=== PATIENT | male | born 1965 | race American Indian/Alaskan Native ===

== ENCOUNTER 2016-10-26 21:31 | Emergency (ER) | payer MEDICAID ==
[2016-10-26] MEDS ORDERED: TYLENOL PO ONE (21:56)
--- NOTE | 2016-10-27 02:54 | Emergency Department Report ---
ED ENT HPI - General Chief complaint: Earache Stated complaint: RIGHT EAR AND FOOT PAIN,HEADACHE Time Seen by Provider: 10/27/16 02:49 Source: patient Mode of arrival: Ambulatory Limitations: No Limitations - History of Present Illness Initial comments: 51 y/o male complain of right earache x 3 days with a headache .pt denies headache at present but complain of fullness to right ear. complaint: ear pain Onset/Timin -: days(s) Location: R ear Severity scale (0 -10): 1 Quality: other (fullness to right ear) Consistency: intermittent Improves with: none, cold therapy - Related Data Home Medications Medication Instructions Recorded Confirmed Last Taken Benztropine [Cogentin] 0.5 mg PO DAILY 07/28/16 07/28/16 07/27/16 Prednisone [predniSONE (Halina) ER 2 mg PO QDAY 07/28/16 07/28/16 07/27/16 TAB] Quetiapine Fumarate [Seroquel] 100 mg PO HS 07/28/16 07/28/16 07/27/16 amLODIPine [Norvasc] 5 mg PO DAILY 07/28/16 07/28/16 07/26/16 Previous Rx's Medication Instructions Recorded Last Taken Type Acetaminophen/Codeine [Tylenol #3] 1 tab PO Q6H PRN #10 tab 07/28/16 Unknown Rx traMADol [Ultram 50 MG tab] 50 mg PO Q6HR PRN #30 tablet 09/09/16 Unknown Rx Azithromycin [Zithromax] 250 mg PO DAILY #6 tablet 10/27/16 Unknown Rx Allergies Allergy/AdvReac Type Severity Reaction Status Date / Time aspirin Allergy Itching Verified 07/28/16 10:20 Penicillins Allergy Hives Verified 07/28/16 10:20 ED Dental HPI - General Chief complaint: Earache Stated complaint: RIGHT EAR AND FOOT PAIN,HEADACHE Time Seen by Provider: 10/27/16 02:49 Source: patient Mode of arrival: Ambulatory Limitations: No Limitations - Related Data Home Medications Medication Instructions Recorded Confirmed Last Taken Benztropine [Cogentin] 0.5 mg PO DAILY 07/28/16 07/28/16 07/27/16 Prednisone [predniSONE (Halina) ER 2 mg PO QDAY 07/28/16 07/28/16 07/27/16 TAB] Quetiapine Fumarate [Seroquel] 100 mg PO HS 07/28/16 07/28/16 07/27/16 amLODIPine [Norvasc] 5 mg PO DAILY 07/28/16 07/28/16 07/26/16 Previous Rx's Medication Instructions Recorded Last Taken Type Acetaminophen/Codeine [Tylenol #3] 1 tab PO Q6H PRN #10 tab 07/28/16 Unknown Rx traMADol [Ultram 50 MG tab] 50 mg PO Q6HR PRN #30 tablet 09/09/16 Unknown Rx Azithromycin [Zithromax] 250 mg PO DAILY #6 tablet 10/27/16 Unknown Rx Allergies Allergy/AdvReac Type Severity Reaction Status Date / Time aspirin Allergy Itching Verified 07/28/16 10:20 Penicillins Allergy Hives Verified 07/28/16 10:20 ED Review of Systems ROS: Stated complaint: RIGHT EAR AND FOOT PAIN,HEADACHE Other details as noted in HPI Constitutional: denies: chills, fever Eyes: denies: eye pain, eye discharge, vision change ENT: ear pain. denies: throat pain Respiratory: denies: cough, shortness of breath, wheezing Cardiovascular: denies: chest pain, palpitations Endocrine: no symptoms reported Gastrointestinal: denies: abdominal pain, nausea, diarrhea Genitourinary: denies: urgency, dysuria Musculoskeletal: denies: back pain, joint swelling, arthralgia Skin: denies: rash, lesions Neurological: headache. denies: weakness, paresthesias Psychiatric: denies: anxiety, depression Hematological/Lymphatic: denies: easy bleeding, easy bruising ED Past Medical Hx - Past Medical History Hx Hypertension: Yes Hx GERD: Yes (PUD) Hx Arthritis: Yes Hx Headaches / Migraines: Yes Hx Psychiatric Treatment: Yes (Bipolar) Hx Asthma: Yes Additional medical history: Right foot/toe injury, Right knne and right hand pain - Surgical History Additional Surgical History: Right knee surgery, Right hand surgery - Social History Smoking Status: Current Every Day Smoker Substance Use Type: None - Medications Home Medications: Home Medications Medication Instructions Recorded Confirmed Last Taken Type Acetaminophen/Codeine [Tylenol #3] 1 tab PO Q6H PRN #10 tab 07/28/16 Unknown Rx Benztropine [Cogentin] 0.5 mg PO DAILY 07/28/16 07/28/16 07/27/16 History Prednisone [predniSONE (Halina) ER 2 mg PO QDAY 07/28/16 07/28/16 07/27/16 History TAB] Quetiapine Fumarate [Seroquel] 100 mg PO HS 07/28/16 07/28/16 07/27/16 History amLODIPine [Norvasc] 5 mg PO DAILY 07/28/16 07/28/16 07/26/16 History traMADol [Ultram 50 MG tab] 50 mg PO Q6HR PRN #30 tablet 09/09/16 Unknown Rx Azithromycin [Zithromax] 250 mg PO DAILY #6 tablet 10/27/16 Unknown Rx ED Physical Exam - General Limitations: No Limitations General appearance: alert, in no apparent distress - Head Head exam: Present: atraumatic, normocephalic - Eye Eye exam: Present: normal appearance, PERRL Pupils: Present: normal accommodation - ENT ENT exam: Present: normal exam, mucous membranes moist - Expanded ENT Exam Expanded TM/Canal exam: Effusion: Right TM, Left TM, Mastoid Tenderness: Right TM, Left TM (frontal ) Mouth exam: Present: normal external inspection. Absent: drooling, trismus, muffled voice, tongue normal Throat exam: Positive: other (post nasal drip ) - Neck Neck exam: Present: normal inspection - Respiratory Respiratory exam: Present: normal lung sounds bilaterally. Absent: respiratory distress, wheezes, rales - Cardiovascular Cardiovascular Exam: Present: regular rate, normal rhythm. Absent: systolic murmur, diastolic murmur, rubs, gallop - GI/Abdominal GI/Abdominal exam: Present: soft, normal bowel sounds - Rectal Rectal exam: Present: deferred - Extremities Exam Extremities exam: Present: normal inspection - Back Exam Back exam: Present: normal inspection - Neurological Exam Neurological exam: Present: alert, oriented X3, CN II-XII intact, normal gait - Psychiatric Psychiatric exam: Present: normal affect, normal mood - Skin Skin exam: Present: warm, dry, intact, normal color. Absent: rash ED Course Vital Signs 10/26/16 21:50 Temperature 98.3 F Pulse Rate 63 Respiratory 18 Rate Blood Pressure 156/107 O2 Sat by Pulse 100 Oximetry ED Medical Decision Making - Medical Decision Making sinusitis Critical care attestation.: If time is entered above; I have spent that time in minutes in the direct care of this critically ill patient, excluding procedure time. ED Disposition Clinical Impression: Sinusitis Qualifiers: Sinusitis location: frontal Chronicity: acute Recurrence: not specified as recurrent Qualified Code(s): J01.10 - Acute frontal sinusitis, unspecified Disposition: DISCHARGED TO HOME OR SELFCARE Is pt being admited?: No Does the pt Need Aspirin: No Condition: Stable Instructions: Sinusitis (ED) Prescriptions: Azithromycin [Zithromax] 250 mg PO DAILY #6 tablet Referrals: PRIMARY CARE, [Primary Care Provider] - 3-5 Days [facility] [Outside] - 3-5 Days Time of Disposition: 02:58
[2016-10-27 03:06] VITALS: BP 136/95
== END 2016-10-27 03:05 | disposition home or self-care (01) ==
LOC: ED 21:31
DX: J01.10 Acute frontal sinusitis, unspecified (principal); I10 Essential (primary) hypertension; K21.9 Gastro-esophageal reflux disease without esophagitis; G43.909 Migraine, unspecified, not intractable, without status migrainosus; F31.9 Bipolar disorder, unspecified; F17.200 Nicotine dependence, unspecified, uncomplicated
CPT/HCPCS: 99282

== ENCOUNTER 2016-12-17 08:20 | Emergency (ER) | payer MEDICAID ==
--- NOTE | 2016-12-17 12:19 | Emergency Department Report ---
ED General Adult HPI - General Chief complaint: Extremity Injury, Lower Stated complaint: EYES/RT TOE NAIL PAIN Time Seen by Provider: 12/17/16 11:24 Source: patient Mode of arrival: Ambulatory Limitations: No Limitations - History of Present Illness Initial comments: PT states last night, he was cutting his toe nails and his R great toe nail broke and peeled up. PT states he tried to cut the lifted piece of nail but he was experiencing pain and noted drainage from the nail bed. PT states his last eye exam was 1 year ago in [place]. PT states he was told to buy some over the counter reading glasses. PT states that some times the reading glasses help but he has noticed an increase in blurry vision. PT denies hx of dm and states his TD is UTD. MD Complaint: toe pain/ blurry vison Location: eyes, right (great toe) Severity scale (0 -10): 9 Quality: constant (toe pain ) Consistency: constant Improves with: rest Worsens with: other (palpation of toe, walking ) Associated Symptoms: denies: confusion, fever/chills, headaches, loss of appetite, malaise - Related Data Home Medications Medication Instructions Recorded Confirmed Last Taken Benztropine [Cogentin] 0.5 mg PO DAILY 07/28/16 07/28/16 07/27/16 Quetiapine Fumarate [Seroquel] 100 mg PO HS 07/28/16 07/28/16 07/27/16 amLODIPine [Norvasc] 5 mg PO DAILY 07/28/16 07/28/16 07/26/16 Previous Rx's Medication Instructions Recorded Last Taken Type Mupirocin [Bactroban 2%] 1 applic TP TID 5 Days 12/17/16 Unknown Rx Sulfamethoxazole/Trimethoprim 1 each PO BID #14 tablet 12/17/16 Unknown Rx [Bactrim DS TAB] Allergies Allergy/AdvReac Type Severity Reaction Status Date / Time aspirin Allergy Itching Verified 07/28/16 10:20 Penicillins Allergy Hives Verified 07/28/16 10:20 ED Review of Systems ROS: Stated complaint: EYES/RT TOE NAIL PAIN Other details as noted in HPI Comment: All other systems reviewed and negative Constitutional: denies: chills, fever Eyes: vision change. denies: eye pain, eye discharge Endocrine: increased thirst, increased urine Gastrointestinal: denies: abdominal pain Genitourinary: frequency. denies: dysuria Musculoskeletal: denies: back pain Neurological: denies: headache ED Past Medical Hx - Past Medical History Previous Medical History?: Yes Hx Hypertension: Yes Hx GERD: Yes (PUD) Hx Arthritis: Yes Hx Headaches / Migraines: Yes Hx Psychiatric Treatment: Yes (Bipolar) Hx Asthma: Yes Additional medical history: Right foot/toe injury, Right knne and right hand pain - Surgical History Past Surgical History?: Yes Additional Surgical History: Right knee surgery, Right hand surgery - Social History Smoking Status: Current Every Day Smoker Substance Use Type: None - Medications Home Medications: Home Medications Medication Instructions Recorded Confirmed Last Taken Type Benztropine [Cogentin] 0.5 mg PO DAILY 07/28/16 07/28/16 07/27/16 History Quetiapine Fumarate [Seroquel] 100 mg PO HS 07/28/16 07/28/16 07/27/16 History amLODIPine [Norvasc] 5 mg PO DAILY 07/28/16 07/28/16 07/26/16 History Mupirocin [Bactroban 2%] 1 applic TP TID 5 Days 12/17/16 Unknown Rx Sulfamethoxazole/Trimethoprim 1 each PO BID #14 tablet 12/17/16 Unknown Rx [Bactrim DS TAB] ED Physical Exam - General Limitations: No Limitations General appearance: alert, in no apparent distress - Head Head exam: Present: atraumatic, normocephalic, normal inspection - Eye Eye exam: Present: EOMI. Absent: conjunctival injection, nystagmus, periorbital swelling, periorbital tenderness Pupils: Present: unequal (L pupil larger than R ) - ENT ENT exam: Present: normal external ear exam - Neck Neck exam: Present: normal inspection, full ROM. Absent: tenderness - Respiratory Respiratory exam: Absent: respiratory distress - Cardiovascular Cardiovascular Exam: Present: regular rate, normal rhythm - Expanded Lower Extremity Exam Right Ankle exam: Present: normal inspection. Absent: tenderness Foot/Toe exam: Present: swelling (To the medial skin fold of the R great toe with erythema. multiple toe nails noted to have onychomycosis), deformity (R foot with Hallux Valgus deformity ) Neuro vascular tendon exam: Present: no vascular compromise. Absent: pulse deficit, sensory deficit - Back Exam Back exam: Present: normal inspection. Absent: tenderness - Neurological Exam Neurological exam: Present: alert, oriented X3, CN II-XII intact, normal gait - Psychiatric Psychiatric exam: Present: normal affect, normal mood - Skin Skin exam: Present: warm, dry ED Course Vital Signs 12/17/16 12/17/16 08:44 14:15 Temperature 97.8 F Pulse Rate 84 Respiratory 18 16 Rate Blood Pressure 111/74 Blood Pressure 112/69 [Right] O2 Sat by Pulse 98 98 Oximetry - Reevaluation(s) Reevaluation #1: 12/17/16 13:11 PT also seen by Dr Matute. Reevaluation #2: 12/17/16 14:[address] scan and need for outpt follow up. - Pulse Oximetry Interpretation Digit-Finger Initial Pulse Oximetry Readin Actions Taken: none ED Medical Decision Making - Differential Diagnosis ingrown toe nail, tinea pedis, brain lesion, new onset dm Critical Care Time: No Critical care attestation.: If time is entered above; I have spent that time in minutes in the direct care of this critically ill patient, excluding procedure time. ED Disposition Clinical Impression: Ingrowing right great toenail, Urinary frequency, Glucosuria, Anisocoria Disposition: DISCHARGED TO HOME OR SELFCARE Is pt being admited?: No Does the pt Need Aspirin: No Condition: Stable Instructions: Ingrown Nail (ED), Bunion (ED) Additional Instructions: you had glucose in your urine specimen today. you will need to follow up with a Primary Care Doctor for a further work up to determine if you have Diabetes. you must follow up with an eye doctor due to your complaint of blurred vision and the physical findings of your exam. Prescriptions: Mupirocin [Bactroban 2%] 1 applic TP TID 5 Days Sulfamethoxazole/Trimethoprim [Bactrim DS TAB] 1 each PO BID #14 tablet Referrals: PRIMARY CARE, [Primary Care Provider] - 3-5 Days NÉSTOR CHAIREZ MD [Staff Physician] - 3-5 Days BRYON CLEARY MD [Staff Physician] - 3-5 Days Time of Disposition: 14:22
[2016-12-17 13:24] LABS: Bilirubin,Urine NEG (Negative); Blood,Urine NEG (Negative); Ketones,Urine NEG (Negative); Leukocyte Esterase,Urine NEG (Negative); Nitrite,Urine NEG (Negative); Protein,Urine <15 mg/dL mg/dL (Negative)
--- NOTE | 2016-12-17 13:52 | Cat Scan Report ---
CT HEAD WITHOUT CONTRAST INDICATION: Blurred vision, anisocoria. COMPARISON: None similar. FINDINGS: Noncontrast head CT demonstrates age-appropriate ventricles and sulci without acute or recent infarct, hemorrhage, mass effect or midline shift. No abnormal extra-axial fluid collections. Posterior fossa structures and basilar cisterns appear within normal limits. Symmetric eye globes. Clear paranasal sinuses and mastoid air cells. Slight nasal septal deviation partially imaged. Intact calvarium. Normal overlying scalp soft tissues. Few radiopaque dental material incidentally noted. CONCLUSION: No acute intracranial CT abnormality, as described. Thank you for the opportunity to participate in this patient's care.
[2016-12-17 14:36] VITALS: BP 112/69
== END 2016-12-17 14:26 | disposition home or self-care (01) ==
LOC: ED 08:20
DX: L60.0 Ingrowing nail (principal); H57.02 Anisocoria; R35.0 Frequency of micturition; R81 Glycosuria; I10 Essential (primary) hypertension; K21.9 Gastro-esophageal reflux disease without esophagitis; M19.90 Unspecified osteoarthritis, unspecified site; G43.909 Migraine, unspecified, not intractable, without status migrainosus; F31.9 Bipolar disorder, unspecified; J45.909 Unspecified asthma, uncomplicated; F17.200 Nicotine dependence, unspecified, uncomplicated; Z88.0 Allergy status to penicillin; Z88.6 Allergy status to analgesic agent
CPT/HCPCS: 70450; 81001; 82962

== ENCOUNTER 2017-01-12 11:54 | Emergency (ER) | payer MEDICAID ==
[2017-01-12 12:45] LABS: Basophils % (Auto) 0.7 % (0.0-1.8); Hematocrit 36.6 % (35.5-45.6); Hemoglobin 11.6 gm/dl (11.8-15.2); Mean Corpuscular HGB Conc 32 % (32-34); Mean Corpuscular Hemoglobin 26 pg (28-32); Mean Corpuscular Volume 82 fl (84-94); Platelet Count 201 K/mm3 (140-440); Red Blood Count 4.44 M/mm3 (3.65-5.03); White Blood Count 7.1 K/mm3 (4.5-11.0)
[2017-01-12 12:50] LABS: Anion Gap 19 mmol/L; BUN/Creatinine Ratio 11.81; Blood Urea Nitrogen 13 mg/dL (9-20); Calcium 8.4 mg/dL (8.4-10.2); Carbon Dioxide 20 mmol/L (22-30); Chloride 104.1 mmol/L (98-107); Glucose 100 mg/dL (75-100); Potassium 3.8 mmol/L (3.6-5.0); Sodium 139 mmol/L (137-145)
[2017-01-12] MEDS ORDERED: PEPCID PO ONE (16:48)
--- NOTE | 2017-01-12 16:54 | Emergency Department Report ---
ED Chest Pain HPI - General Chief Complaint: Chest Pain Stated Complaint: ACID REFLUX Time Seen by Provider: 01/12/17 16:16 Source: patient Mode of arrival: Ambulatory Limitations: No Limitations - History of Present Illness Initial Comments: She is a 51-year-old male with a history of bipolar disease presenting to the ER with complaints of chest pain described as his acid reflux. Patient reports he is suffering from acid reflux but does not take anything for daily medication. Pain has been substernal, constant, and consistent with his heartburn. Patient reports the pain has been going on for 2 days with no relief. Pt reports no history of cardiac disease, but has had zero workup he reports in the past. He also reports no followup with PMD for acid reflux meds. Pt also reports he is allergic to aspirin. Otherwise no fevers, chills, NVD, diaphoresis, jaw pain, arm pain, parasthesias, SOB, abd pain, travel, or sick contacts MD Complaint: chest pain -: Gradual Pain Location: substernal Pain Radiation: none Severity: mild Severity scale (0 -10): 4 Quality: other (burning) Consistency: constant Improves With: medication-other - Related Data Home Medications Medication Instructions Recorded Confirmed Last Taken Benztropine [Cogentin] 0.5 mg PO DAILY 07/28/16 01/12/17 01/11/17 1 tablet amLODIPine [Norvasc] 5 mg PO DAILY 07/28/16 01/12/17 01/11/17 Previous Rx's Medication Instructions Recorded Last Taken Type Omeprazole 40 mg PO DAILY #30 capsule. 01/12/17 Unknown Rx Sucralfate [Carafate] 1 gm PO Q6HR #1 bottle 01/12/17 Unknown Rx Allergies Allergy/AdvReac Type Severity Reaction Status Date / Time aspirin Allergy Itching Verified 07/28/16 10:20 Penicillins Allergy Hives Verified 07/28/16 10:20 BETHANY score - Bethany Score Age > 65: (0) No Aspirin use within the Past 7 Days: (0) No 3 or more CAD Risk Factors: (0) No 2 or more Angina events in past 24 hrs: (0) No Known CAD with more than 50% Stenosis: (0) No Elevated Cardiac Markers: (0) No ST Deviation Greater than 0.5mm: (0) No BETHANY Score: 0 ED Review of Systems ROS: Stated complaint: ACID REFLUX Other details as noted in HPI Comment: All other systems reviewed and negative ED Past Medical Hx - Past Medical History Hx Hypertension: Yes Hx GERD: Yes (PUD) Hx Arthritis: Yes Hx Headaches / Migraines: Yes Hx Psychiatric Treatment: Yes (Bipolar) Hx Asthma: Yes Additional medical history: Right foot/toe injury, Right knne and right hand pain - Surgical History Additional Surgical History: Right knee surgery, Right hand surgery - Social History Smoking Status: Current Every Day Smoker Substance Use Type: None - Medications Home Medications: Home Medications Medication Instructions Recorded Confirmed Last Taken Type Benztropine [Cogentin] 0.5 mg PO DAILY 07/28/16 01/12/17 01/11/17 History 1 tablet amLODIPine [Norvasc] 5 mg PO DAILY 07/28/16 01/12/17 01/11/17 History Omeprazole 40 mg PO DAILY #30 capsule. 01/12/17 Unknown Rx Sucralfate [Carafate] 1 gm PO Q6HR #1 bottle 01/12/17 Unknown Rx ED Physical Exam - General Limitations: No Limitations General appearance: alert, in no apparent distress - Head Head exam: Present: atraumatic, normocephalic - Eye Eye exam: Present: normal appearance - ENT ENT exam: Present: mucous membranes moist - Neck Neck exam: Present: normal inspection - Respiratory Respiratory exam: Present: normal lung sounds bilaterally. Absent: respiratory distress, wheezes, rales, rhonchi - Cardiovascular Cardiovascular Exam: Present: regular rate, normal rhythm, normal heart sounds. Absent: irregular rhythm, systolic murmur, diastolic murmur, rubs, gallop - GI/Abdominal GI/Abdominal exam: Present: soft, normal bowel sounds - Rectal Rectal exam: Present: deferred - Extremities Exam Extremities exam: Present: normal inspection - Back Exam Back exam: Present: normal inspection - Neurological Exam Neurological exam: Present: alert, oriented X3 - Psychiatric Psychiatric exam: Present: normal affect, normal mood - Skin Skin exam: Present: warm, dry, intact, normal color. Absent: rash ED Course Vital Signs 01/12/17 01/12/17 01/12/17 12:09 14:04 14:05 Temperature 98.1 F 97.8 F Pulse Rate 113 H 84 82 Respiratory 20 15 18 Rate Blood Pressure 105/69 Blood Pressure 111/74 [Right] O2 Sat by Pulse 99 98 Oximetry 01/12/17 01/12/17 01/12/17 14:11 14:21 14:30 Temperature Pulse Rate 73 73 72 Respiratory 15 14 14 Rate Blood Pressure 111/74 109/71 108/70 Blood Pressure [Right] O2 Sat by Pulse 97 96 99 Oximetry 01/12/17 01/12/17 01/12/17 14:41 14:51 15:00 Temperature Pulse Rate 70 70 65 Respiratory 14 14 15 Rate Blood Pressure 108/70 106/73 110/71 Blood Pressure [Right] O2 Sat by Pulse 99 98 100 Oximetry 01/12/17 01/12/17 01/12/17 15:11 15:21 15:30 Temperature Pulse Rate 64 64 63 Respiratory 13 13 19 Rate Blood Pressure 110/71 108/75 107/73 Blood Pressure [Right] O2 Sat by Pulse 100 99 100 Oximetry 01/12/17 01/12/17 01/12/17 15:41 15:51 16:00 Temperature Pulse Rate 77 65 60 Respiratory 12 15 14 Rate Blood Pressure 107/73 109/73 107/74 Blood Pressure [Right] O2 Sat by Pulse 100 100 100 Oximetry 01/12/17 01/12/17 01/12/17 16:11 16:21 16:30 Temperature Pulse Rate 75 71 69 Respiratory 20 20 16 Rate Blood Pressure 107/74 117/76 104/72 Blood Pressure [Right] O2 Sat by Pulse 99 99 100 Oximetry 01/12/17 01/12/17 01/12/17 16:41 16:53 17:00 Temperature Pulse Rate 70 69 69 Respiratory 16 22 18 Rate Blood Pressure 104/72 112/75 115/76 Blood Pressure [Right] O2 Sat by Pulse 100 100 100 Oximetry 01/12/17 01/12/17 01/12/17 17:11 17:21 17:38 Temperature 97.8 F Pulse Rate 71 73 64 Respiratory 13 17 16 Rate Blood Pressure 115/76 117/79 Blood Pressure 117/79 [Right] O2 Sat by Pulse 99 100 100 Oximetry - Reevaluation(s) Reevaluation #1: 01/12/17 18:42 Pt reports the pain is now gone and wants to eat. I discussed the patient has negative troponins x 2 and he reports the pain is exactly like his GERD. Pt to be discharged with omeprazole and to follow up with [facility]. I instructed the patient to return if his chest pain returns. Pt understood ED Medical Decision Making - Lab Data Result diagrams: 01/12/17 12:20 01/12/17 12:20 - EKG Data -: EKG Interpreted by Me ([id number]) EKG shows normal: sinus rhythm, axis (normal axis), intervals (Qtc:441ms), QRS complexes, ST-T waves ((-)ST changes, no STEMI.) Rate: normal (97 bpm) - EKG Data When compared to previous EKG there are: no significant change (as compared to EKG from09/09/16) Critical care attestation.: If time is entered above; I have spent that time in minutes in the direct care of this critically ill patient, excluding procedure time. ED Disposition Clinical Impression: Acid reflux disease, Chest pain Disposition: DISCHARGED TO HOME OR SELFCARE Is pt being admited?: No Condition: Stable Instructions: Chest Pain (ED), Gastroesophageal Reflux Disease (ED) Prescriptions: Omeprazole 40 mg PO DAILY #30 capsule. Sucralfate [Carafate] 1 gm PO Q6HR #1 bottle Referrals: PRIMARY CARE, [Primary Care Provider] - 3-5 Days
[2017-01-12] MEDS ORDERED: CARAFATE PO ONE (17:30)
[2017-01-12 17:39] VITALS: BP 117/79
--- NOTE | 2017-01-13 09:10 | XRay Report ---
CHEST 2 VIEWS INDICATION: Chest pain. COMPARISON: 09/09/2016 FINDINGS: PA and lateral chest radiographs again demonstrate normal cardiomediastinal silhouette and clear, mildly hyperinflated lungs. Stable surgical clips about the GE junction and mild thoracic levoscoliosis apex about T5. Mild lower thoracic lordosis and mild degenerative spurring also noted. EKG leads. CONCLUSION: No acute disease, stable, as described. Thank you for the opportunity to participate in this patient's care.
== END 2017-01-12 19:04 | disposition home or self-care (01) ==
LOC: ED 11:54
DX: K21.9 Gastro-esophageal reflux disease without esophagitis (principal); R07.2 Precordial pain; I10 Essential (primary) hypertension; M19.90 Unspecified osteoarthritis, unspecified site; G43.909 Migraine, unspecified, not intractable, without status migrainosus; F31.9 Bipolar disorder, unspecified; J45.909 Unspecified asthma, uncomplicated; F17.200 Nicotine dependence, unspecified, uncomplicated; Z88.0 Allergy status to penicillin; Z88.6 Allergy status to analgesic agent
CPT/HCPCS: 36415; 71020; 80048; 83690; 84484; 85025; 93005; 93010

== ENCOUNTER 2017-01-31 14:34 | Emergency (ER) | payer MEDICAID ==
[2017-01-31] MEDS ORDERED: NACL 0.9% 1000 ML 1,000 ML ONE (15:18)
[2017-01-31] MEDS ORDERED: NACL 0.9% 1000 ML 1,000 ML IV ONE ×2 (15:28→17:08)
[2017-01-31 17:07] LABS: Bilirubin,Urine NEG (Negative); Blood,Urine NEG (Negative); Ketones,Urine NEG (Negative); Leukocyte Esterase,Urine NEG (Negative); Mucus,Urine 1+ /HPF; Nitrite,Urine NEG (Negative); Protein,Urine <15 mg/dL mg/dL (Negative)
[2017-01-31] MEDS ORDERED: ALUM-MAG HYDROX-SIMETH 200-200-20MG/5ML PO ONE (17:09)
[2017-01-31] MEDS ORDERED: PEPCID PO ONE (17:09)
[2017-01-31] MEDS ORDERED: LIDOCAINE VISCOUS 2% PO ONE (17:09)
--- NOTE | 2017-01-31 17:10 | Emergency Department Report ---
ED Abdominal Pain HPI - General Chief Complaint: Abdominal Pain Stated Complaint: ABD PAIN Time Seen by Provider: 01/31/17 16:12 Source: patient, EMS Mode of arrival: Ambulatory Limitations: No Limitations - History of Present Illness Initial Comments: Patient is a 51-year-old male with history of bipolar affective disorder and hypertension presenting today because of abdominal pain. Patient states that this pain has been going on and off for years but has worsened over the last week or 2. Patient says that the pain is in the epigastrium and sometimes he notices some sour taste in the back of throat. He has not taken any medication for this. To see a GI doctor in 1 month's time. Denies any fevers or chills. States that he can tolerate food without difficulty and is currently hungry and asking for brenda crackers. Severity scale (0 -10): 10 - Related Data Home Medications Medication Instructions Recorded Confirmed Last Taken Benztropine [Cogentin] 1 tab PO 01/31/17 Unknown Dicyclomine [Bentyl] 20 tab PO 01/31/17 Unknown Divalproex [Ken Davila] 1 tab PO HS 01/31/17 01/31/17 Unknown Famotidine [Pepcid] 20 mg PO BID 01/31/17 01/31/17 Unknown Ondansetron [Zofran ODT TAB] 4 tab PO 01/31/17 Unknown Percocet 5/325 mg 5 - 325 tab PO 01/31/17 Unknown Prazosin [Minipress] 2 cap PO 01/31/17 Unknown traZODone [Desyrel] 100 mg PO QHS 01/31/17 01/31/17 Unknown Previous Rx's Medication Instructions Recorded Last Taken Type Famotidine [Pepcid] 20 mg PO BID #15 tablet 01/31/17 Unknown Rx Polyethylene Glycol 3350 [Miralax 17 gm PO QDAY #7 packet 01/31/17 Unknown Rx 3350] Allergies Allergy/AdvReac Type Severity Reaction Status Date / Time aspirin Allergy Itching Verified 07/28/16 10:20 Penicillins Allergy Hives Verified 07/28/16 10:20 ED Review of Systems ROS: Stated complaint: ABD PAIN Other details as noted in HPI Comment: All other systems reviewed and negative Constitutional: denies: chills, fever Respiratory: denies: cough Cardiovascular: denies: chest pain Gastrointestinal: abdominal pain. denies: nausea, vomiting Genitourinary: denies: urgency, dysuria Skin: denies: rash Neurological: denies: headache Psychiatric: denies: anxiety ED Past Medical Hx - Past Medical History Previous Medical History?: Yes Hx Hypertension: Yes Hx GERD: Yes (PUD) Hx Arthritis: Yes Hx Headaches / Migraines: Yes Hx Psychiatric Treatment: Yes (Bipolar) Hx Asthma: Yes Additional medical history: Right foot/toe injury, Right knne and right hand pain - Surgical History Past Surgical History?: Yes Additional Surgical History: Right knee surgery, Right hand surgery - Social History Smoking Status: Current Every Day Smoker Substance Use Type: Prescribed - Medications Home Medications: Home Medications Medication Instructions Recorded Confirmed Last Taken Type Benztropine [Cogentin] 1 tab PO 01/31/17 Unknown History Dicyclomine [Bentyl] 20 tab PO 01/31/17 Unknown History Divalproex [Ken Davila] 1 tab PO HS 01/31/17 01/31/17 Unknown History Famotidine [Pepcid] 20 mg PO BID 01/31/17 01/31/17 Unknown History Famotidine [Pepcid] 20 mg PO BID #15 tablet 01/31/17 Unknown Rx Ondansetron [Zofran ODT TAB] 4 tab PO 01/31/17 Unknown History Percocet 5/325 mg 5 - 325 tab PO 01/31/17 Unknown History Polyethylene Glycol 3350 [Miralax 17 gm PO QDAY #7 packet 01/31/17 Unknown Rx 3350] Prazosin [Minipress] 2 cap PO 01/31/17 Unknown History traZODone [Desyrel] 100 mg PO QHS 01/31/17 01/31/17 Unknown History ED Physical Exam - General Limitations: No Limitations General appearance: alert, in no apparent distress - ENT ENT exam: Present: normal exam - Respiratory Respiratory exam: Present: normal lung sounds bilaterally. Absent: respiratory distress - Cardiovascular Cardiovascular Exam: Present: regular rate, normal rhythm - GI/Abdominal GI/Abdominal exam: Present: soft. Absent: distended, tenderness, rebound, rigid - Neurological Exam Neurological exam: Present: alert, oriented X3 - Psychiatric Psychiatric exam: Present: normal affect - Skin Skin exam: Present: intact ED Course Vital Signs 01/31/17 01/31/17 01/31/17 15:04 15:12 15:15 Temperature 98 F Pulse Rate 90 66 63 Respiratory 14 16 16 Rate Blood Pressure 63/40 86/55 Blood Pressure 85/56 [Right] O2 Sat by Pulse 97 99 Oximetry 01/31/17 01/31/17 01/31/17 15:27 15:30 15:45 Temperature Pulse Rate 53 L 55 L 51 L Respiratory 16 18 16 Rate Blood Pressure 93/62 103/71 Blood Pressure 93/62 103/71 [Right] O2 Sat by Pulse 99 99 Oximetry 01/31/17 01/31/17 01/31/17 16:00 16:15 16:30 Temperature Pulse Rate 50 L 56 L 49 L Respiratory 16 15 15 Rate Blood Pressure 103/71 105/78 106/72 Blood Pressure 106/72 105/72 [Right] O2 Sat by Pulse 99 99 99 Oximetry 01/31/17 01/31/17 01/31/17 16:40 16:45 17:01 Temperature Pulse Rate 42 L 47 L Respiratory 18 11 L 17 Rate Blood Pressure 113/78 106/72 Blood Pressure [Right] O2 Sat by Pulse 100 98 99 Oximetry 01/31/17 01/31/17 01/31/17 17:15 17:31 17:45 Temperature Pulse Rate 44 L 50 L 44 L Respiratory 13 18 14 Rate Blood Pressure 120/80 120/80 126/86 Blood Pressure [Right] O2 Sat by Pulse 99 100 99 Oximetry 01/31/17 01/31/17 01/31/17 18:00 18:15 18:30 Temperature Pulse Rate 43 L 45 L 48 L Respiratory 16 16 13 Rate Blood Pressure 127/91 122/86 123/87 Blood Pressure [Right] O2 Sat by Pulse 99 98 99 Oximetry 01/31/17 01/31/17 01/31/17 18:45 19:00 19:55 Temperature Pulse Rate 45 L 45 L Respiratory 13 12 Rate Blood Pressure 136/94 136/96 136/96 Blood Pressure [Right] O2 Sat by Pulse 98 98 76 L Oximetry 01/31/17 01/31/17 01/31/17 20:01 20:15 20:30 Temperature Pulse Rate 62 45 L 45 L Respiratory 18 13 11 L Rate Blood Pressure 103/63 136/93 140/94 Blood Pressure [Right] O2 Sat by Pulse 99 99 96 Oximetry 01/31/17 01/31/17 01/31/17 20:45 21:00 21:01 Temperature Pulse Rate 45 L 46 L 46 L Respiratory 12 14 14 Rate Blood Pressure 141/92 149/83 Blood Pressure 149/83 [Right] O2 Sat by Pulse 98 97 97 Oximetry ED Medical Decision Making - Lab Data Result diagrams: 01/31/17 17:32 01/31/17 17:32 - Medical Decision Making Records of his review the patient was recently treated for GERD, GI cocktail was ordered, labs as well as ultrasound was ordered Labs show no significant abnormalities Ultrasound shows gallstones but no signs of acute cholecystitis, patient doesn' t have noted cysts in the kidneys which I have relayed to the patient to have follow-up with the primary doctor Patient is now stating that his pain is actually in the left lower ribs, says he has been taking a muscle relaxer which helped significantly. Muscular pain is a possibility for his source of pain there. He also has been very constipated and had hard small amounts of stool but is passing gas and stooling. He is likely also constipated. We'll give him some medication for constipation. Currently he is stable and is okay to follow up with the primary care doctor. Critical care attestation.: If time is entered above; I have spent that time in minutes in the direct care of this critically ill patient, excluding procedure time. 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 Please return to the emergency room immediately if your symptoms worsen or you develop new symptoms including fevers, chills, severe pain or vomiting. Prescriptions: Famotidine [Pepcid] 20 mg PO BID #15 tablet Polyethylene Glycol 3350 [Miralax 3350] 17 gm PO QDAY #7 packet Referrals: PRIMARY CARE, [Primary Care Provider] - 3-5 Days Time of Disposition: 21:13
[2017-01-31 17:57] LABS: Basophils % (Auto) 0.7 % (0.0-1.8); Eosinophils % (Auto) 1.5 % (0.0-4.3); Hematocrit 37.7 % (35.5-45.6); Mean Corpuscular HGB Conc 32 % (32-34); Mean Corpuscular Hemoglobin 27 pg (28-32); Mean Corpuscular Volume 83 fl (84-94); Platelet Count 203 K/mm3 (140-440); Red Blood Count 4.52 M/mm3 (3.65-5.03); Red Cell Distribution Width 16.5 % (13.2-15.2); White Blood Count 5.6 K/mm3 (4.5-11.0)
[2017-01-31 18:17] LABS: Alanine Aminotransferase 14 units/L (7-56); Albumin 3.2 g/dL (3.9-5); Albumin/Globulin Ratio 1.3 %; Alkaline Phosphatase 55 units/L (35-129); Anion Gap 16 mmol/L; BUN/Creatinine Ratio 14.16; Blood Urea Nitrogen 17 mg/dL (9-20); Calcium 8.2 mg/dL (8.4-10.2); Carbon Dioxide 27 mmol/L (22-30); Chloride 102.7 mmol/L (98-107); Glucose 94 mg/dL (75-100); Lipase 8 units/L (13-60); Potassium 4.4 mmol/L (3.6-5.0); Sodium 141 mmol/L (137-145); Total Protein 5.6 g/dL (6.3-8.2)
[2017-01-31 18:20] LABS: Bilirubin,Direct < 0.2 mg/dL (0-0.2); Bilirubin,Indirect 0.1 mg/dL
--- NOTE | 2017-01-31 20:27 | Ultrasound Report ---
FINAL REPORT EXAM: US ABDOMEN COMPLETE HISTORY: epigastric, luq, ruq pain TECHNIQUE: Directed sonography of the upper abdomen. PRIORS: None. FINDINGS: Gallbladder contains multiple, echogenic and shadowing calculi. Gallbladder wall borderline thickened measuring 3.2 mm. No significant pericholecystic fluid. Intra-and extrahepatic bile ducts are of normal caliber. The liver has normal homogeneous echogenicity without focal abnormalities. Right kidney measures 12.3 cm in longest dimension and left kidney measures 11.1 cm in longest dimension. Bilateral renal cysts measuring 2.9 x 2.8 cm on the right and 3.8 x 3.4 cm on the left. No significant hydronephrosis. Visualized splenic parenchyma grossly unremarkable. Pancreas poorly visualized due to overlying bowel gas. Visualized abdominal aorta and IVC grossly unremarkable. IMPRESSION: 1. Cholelithiasis. 2. Bilateral renal cysts.
[2017-01-31 21:22] VITALS: BP 149/83
== END 2017-01-31 21:20 | disposition home or self-care (01) ==
LOC: ED 14:34 → EDBD 14:34 → ED 21:20
DX: R10.12 Left upper quadrant pain (principal); I10 Essential (primary) hypertension; K21.9 Gastro-esophageal reflux disease without esophagitis; K59.00 Constipation, unspecified; K92.1 Melena; M19.90 Unspecified osteoarthritis, unspecified site; F31.9 Bipolar disorder, unspecified; J45.909 Unspecified asthma, uncomplicated; F17.200 Nicotine dependence, unspecified, uncomplicated; Z88.6 Allergy status to analgesic agent; Z88.0 Allergy status to penicillin
CPT/HCPCS: 36415; 76700; 80048; 80074; 81001; 82140; 83690; 85025; 93005; 93010; 96360; 96361; 99285; J7030

== ENCOUNTER 2018-01-08 20:31 | Emergency (ER) | payer SELFPAY ==
[2018-01-08 21:10] LABS: Basophils # (Auto) 0.1 K/mm3 (0.0-0.1); Basophils % (Auto) 1.3 % (0.0-1.8); Eosinophils # (Auto) 0.1 K/mm3 (0.0-0.4); Eosinophils % (Auto) 2.4 % (0.0-4.3); Hematocrit 36.1 % (35.5-45.6); Hemoglobin 11.5 gm/dl (11.8-15.2); Lymphocytes # (Auto) 1.2 K/mm3 (1.2-5.4); Lymphocytes % (Auto) 21.3 % (13.4-35.0); Mean Corpuscular HGB Conc 32 % (32-34); Mean Corpuscular Hemoglobin 30 pg (28-32); Mean Corpuscular Volume 93 fl (84-94); Monocytes # (Auto) 0.5 K/mm3 (0.0-0.8); Monocytes % (Auto) 8.4 % (0.0-7.3); Platelet Count 403 K/mm3 (140-440); Red Blood Count 3.87 M/mm3 (3.65-5.03); Red Cell Distribution Width 15.8 % (13.2-15.2)
[2018-01-08 21:23] LABS: Calcium 8.1 mg/dL (8.4-10.2)
[2018-01-08] MEDS ORDERED: KIONEX PO ONE (22:08)
[2018-01-08] MEDS ORDERED: ULTRAM PO ONE (22:14)
[2018-01-08] MEDS ORDERED: LOVENOX SUB-Q ONE (22:14)
[2018-01-08] MEDS ORDERED: LASIX IV ONE (22:36)
--- NOTE | 2018-01-08 22:39 | XRay Report ---
FINAL REPORT PROCEDURE: XR ANKLE 3+V RT TECHNIQUE: RIGHT ankle radiographs, AP, lateral, and oblique views. CPT 70394 HISTORY: edema right malcom and foot COMPARISON: No prior studies are available for comparison. FINDINGS: Fracture (s) and/or Dislocation(s): None. Alignment: Normal. Joint space(s): Normal. Soft tissues: Moderate degree soft tissue swelling is identified around the ankle.. Bone mineralization: Normal. Foreign bodies: None. Calcaneal spurring: None. IMPRESSION: No acute bony or joint abnormality Moderate degree soft tissue swelling.
[2018-01-08] MEDS ORDERED: NACL 0.9% 500 ML 500 ML IV ONE (22:49)
--- NOTE | 2018-01-08 22:55 | Emergency Department Report ---
ED Lower Extremity HPI - General Chief Complaint: Extremity Injury, Lower Stated Complaint: LEG PAIN Time Seen by Provider: 01/08/18 22:08 Source: patient Mode of arrival: Ambulatory Limitations: No Limitations - History of Present Illness Initial Comments: 52-year-old male with a past medical history of arthritis, asthma, PUD,, migraines, hypertension, and bipolar disorder presents to the hospital complaints of right ankle and foot swelling and pain 1 week. Patient returned from a bus ride from [place] weeks ago. Patient states that his left leg was also swollen but it has since resolved. He has persistent right ankle and foot swelling with pain radiating up to the leg. No trauma or injury reported. No fever. Patient denies chest pain, shortness of breath, syncope/near syncope, history of PE/DVT. He currently is taking trazodone and Risperdal, no history of previous seizures. Pain is constant, rates it 9/10 in intensity, worse with palpation and movement and ambulation. - Related Data Home Medications Medication Instructions Recorded Confirmed Last Taken Benztropine [Cogentin] 1 tab PO 01/31/17 Unknown Dicyclomine [Bentyl] 20 tab PO 01/31/17 Unknown Divalproex [Ken Davila] 1 tab PO HS 01/31/17 01/31/17 Unknown Famotidine [Pepcid] 20 mg PO BID 01/31/17 01/31/17 Unknown Ondansetron [Zofran ODT TAB] 4 tab PO 01/31/17 Unknown Percocet 5/325 mg 5 - 325 tab PO 01/31/17 Unknown Prazosin [Minipress] 2 cap PO 01/31/17 Unknown traZODone [Desyrel] 100 mg PO QHS 01/31/17 01/31/17 Unknown Previous Rx's Medication Instructions Recorded Last Taken Type Famotidine [Pepcid] 20 mg PO BID #15 tablet 01/31/17 Unknown Rx Polyethylene Glycol 3350 [Miralax 17 gm PO QDAY #7 packet 01/31/17 Unknown Rx 3350] Sulfamethoxazole/Trimethoprim 1 each PO BID #20 tablet 01/09/18 Unknown Rx [Bactrim DS TAB] traMADol [Ultram 50 MG tab] 50 mg PO Q6HR PRN #20 tablet 01/09/18 Unknown Rx Allergies Allergy/AdvReac Type Severity Reaction Status Date / Time aspirin Allergy Itching Verified 07/28/16 10:20 Penicillins Allergy Hives Verified 07/28/16 10:20 ED Review of Systems ROS: Stated complaint: LEG PAIN Other details as noted in HPI Comment: All other systems reviewed and negative ED Past Medical Hx - Past Medical History Hx Hypertension: Yes Hx GERD: Yes (PUD) Hx Arthritis: Yes Hx Headaches / Migraines: Yes Hx Psychiatric Treatment: Yes (Bipolar) Hx Asthma: Yes Additional medical history: Right foot/toe injury, Right knne and right hand pain - Surgical History Additional Surgical History: Right knee surgery, Right hand surgery - Social History Smoking Status: Current Every Day Smoker Substance Use Type: None - Medications Home Medications: Home Medications Medication Instructions Recorded Confirmed Last Taken Type Benztropine [Cogentin] 1 tab PO 01/31/17 Unknown History Dicyclomine [Bentyl] 20 tab PO 01/31/[address] [Ken Davila] 1 tab PO HS 01/31/17 01/31/17 Unknown History Famotidine [Pepcid] 20 mg PO BID 01/31/17 01/31/17 Unknown History Famotidine [Pepcid] 20 mg PO BID #15 tablet 01/31/17 Unknown Rx Ondansetron [Zofran ODT TAB] 4 tab PO 01/31/17 Unknown History Percocet 5/325 mg 5 - 325 tab PO 01/31/17 Unknown History Polyethylene Glycol 3350 [Miralax 17 gm PO QDAY #7 packet 01/31/17 Unknown Rx 3350] Prazosin [Minipress] 2 cap PO 01/31/17 Unknown History traZODone [Desyrel] 100 mg PO QHS 01/31/17 01/31/17 Unknown History Sulfamethoxazole/Trimethoprim 1 each PO BID #20 tablet 01/09/18 Unknown Rx [Bactrim DS TAB] traMADol [Ultram 50 MG tab] 50 mg PO Q6HR PRN #20 tablet 01/09/18 Unknown Rx ED Physical Exam - General Limitations: No Limitations - Other Other exam information: General: No limitations, patient is alert in no acute distress Head exam: Atraumatic, normocephalic Eyes exam: Normal appearance ENT: Moist mucous membrane, normal oropharynx Neck exam: Normal inspection, full range of motion, no meningismus nontender Respiratory exam: Clear to auscultation bilateral, no wheezes, rales, crackles Cardiovascular: Normal rate and rhythm, normal heart sounds Abdomen: Soft, nondistended, and nontender, with normal bowel sounds, no rebound, or guarding Extremity: Right ankle and foot swelling, 2+ DP pulse, positive warmth to foot and ankle without erythema or rash or ulcer. Tenderness extending to right calf without significant leg asymmetry. Full range of motion but pain to the ankle Back: Normal Inspection, full range of motion, no tenderness Neurologic: Alert, oriented x3, cranial nerves intact, no motor or sensory deficit Psychiatric: normal affect, normal mood Skin: Warm, dry, intact ED Course Vital Signs 01/08/18 01/08/18 01/09/18 20:40 22:56 01:18 Temperature 98 F Pulse Rate 95 H 81 72 Respiratory 18 20 18 Rate Blood Pressure 122/95 Blood Pressure 147/97 137/87 [Left] O2 Sat by Pulse 100 100 96 Oximetry ED Lower Extremity MDM - Lab Data Result diagrams: 01/08/18 21:01 01/09/18 01:56 Lab Results 01/08/18 01/08/18 01/08/18 Range/Units 21:01 21:01 21:01 WBC 5.7 (4.5-11.0) K/mm3 RBC 3.87 (3.65-5.03) M/mm3 Hgb 11.5 L (11.8-15.2) gm/dl Hct 36.1 (35.5-45.6) % MCV 93 (84-94) fl MCH 30 (28-32) pg MCHC 32 (32-34) % RDW 15.8 H (13.2-15.2) % Plt Count 403 (140-440) K/mm3 Lymph % (Auto) 21.3 (13.4-35.0) % [place] % (Auto) 8.4 H (0.0-7.3) % Eos % (Auto) 2.4 (0.0-4.3) % Baso % (Auto) 1.3 (0.0-1.8) % Lymph # 1.2 (1.2-5.4) K/mm3 [place] # 0.5 (0.0-0.8) K/mm3 Eos # 0.1 (0.0-0.4) K/mm3 Baso # 0.1 (0.0-0.1) K/mm3 Seg Neutrophils % 66.6 (40.0-70.0) % Seg Neutrophils # 3.8 (1.8-7.7) K/mm3 D-Dimer 425.55 H (0-234) ng/mlDDU Sodium 140 (137-145) mmol/L Potassium 5.5 H (3.6-5.0) mmol/L Chloride 108.4 H (98-107) mmol/L Carbon Dioxide 23 (22-30) mmol/L Anion Gap 14 mmol/L BUN 9 (9-20) mg/dL Creatinine 1.5 (0.8-1.5) mg/dL Estimated GFR 60 ml/min BUN/Creatinine Ratio 6 % Glucose 144 H (75-100) mg/dL Calcium 8.1 L (8.4-10.2) mg/dL 01/09/18 Range/Units 01:56 WBC (4.5-11.0) K/mm3 RBC (3.65-5.03) M/mm3 Hgb (11.8-15.2) gm/dl Hct (35.5-45.6) % MCV (84-94) fl MCH (28-32) pg MCHC (32-34) % RDW (13.2-15.2) % Plt Count (140-440) K/mm3 Lymph % (Auto) (13.4-35.0) % [place] % (Auto) (0.0-7.3) % Eos % (Auto) (0.0-4.3) % Baso % (Auto) (0.0-1.8) % Lymph # (1.2-5.4) K/mm3 [place] # (0.0-0.8) K/mm3 Eos # (0.0-0.4) K/mm3 Baso # (0.0-0.1) K/mm3 Seg Neutrophils % (40.0-70.0) % Seg Neutrophils # (1.8-7.7) K/mm3 D-Dimer (0-234) ng/mlDDU Sodium (137-145) mmol/L Potassium 5.2 H (3.6-5.0) mmol/L Chloride (98-107) mmol/L Carbon Dioxide (22-30) mmol/L Anion Gap mmol/L BUN (9-20) mg/dL Creatinine (0.8-1.5) mg/dL Estimated GFR ml/min BUN/Creatinine Ratio % Glucose (75-100) mg/dL Calcium (8.4-10.2) mg/dL - EKG Data -: EKG Interpreted by Me EKG shows normal: sinus rhythm, axis (qrs 71), QRS complexes (qrsd 77), ST-T waves (early repol, no stemi) Rate: bradycardia (57) - EKG Data When compared to previous EKG there are: no significant change - Radiology Data Radiology results: report reviewed right ankle xray IMPRESSION: No acute bony or joint abnormality Moderate degree soft tissue swelling. - Medical Decision Making Patient has right sided foot and ankle swelling and travel reported. Elevated d -dimer. Doppler is not available tonight but ordered for tomorrow. Patient received a therapeutic dose of Lovenox 1. Incidental hyperkalemia without known cause. Patient received Lasix, Kayexalate, and IV fluids. Repeat shows reduction and potassium. Pt is stable for discharge and follow-up. No chest pain or shortness of breath reported. Vital signs stable. Tramadol given for pain. Since + warmth pt will be covered with bactrim - Differential Diagnosis gout, arthritis, fracture, DVT Critical Care Time: No Critical care attestation.: If time is entered above; I have spent that time in minutes in the direct care of this critically ill patient, excluding procedure time. ED Disposition Clinical Impression: Edema of right ankle, Edema of right foot, Right leg pain, Elevated d-dimer, Hyperkalemia Disposition: TO HOME OR SELFCARE Is pt being admited?: No Does the pt Need Aspirin: No Condition: Stable Instructions: Leg Edema (ED), Hyperkalemia (ED) Additional Instructions: Take the medication as prescribed. It is very important to follow-up for your outpatient vascular study to make sure you do not have a blood clot in your leg. You should receive a call from the radiology Department telling you when to come back for your ultrasound. If positive you will be sent to the ER for evaluation. If negative continue the antibiotics and pain medication as prescribed and follow with the primary care doctor for further management.. Prescriptions: Sulfamethoxazole/Trimethoprim [Bactrim DS TAB] 1 each PO BID #20 tablet traMADol [Ultram 50 MG tab] 50 mg PO Q6HR PRN #20 tablet PRN Reason: Pain Referrals: DIANNE MATHEW MD [Primary Care Provider] - 3-5 Days (Primary care doctor ) [facility] [Provider Group] - 3-5 Days (Primary care clinic) Time of Disposition: 02:55
[2018-01-09 03:01] VITALS: BP 133/86
== END 2018-01-09 03:26 | disposition home or self-care (01) ==
LOC: ED 20:31
DX: R60.0 Localized edema (principal); E87.5 Hyperkalemia; R79.89 Other specified abnormal findings of blood chemistry; I10 Essential (primary) hypertension; F31.9 Bipolar disorder, unspecified; K21.9 Gastro-esophageal reflux disease without esophagitis; F17.200 Nicotine dependence, unspecified, uncomplicated; J45.909 Unspecified asthma, uncomplicated; M19.90 Unspecified osteoarthritis, unspecified site; Z88.6 Allergy status to analgesic agent; Z88.0 Allergy status to penicillin; Z79.899 Other long term (current) drug therapy
CPT/HCPCS: 36415; 73610; 80048; 84132; 85025; 85379; 93005; 93010; 96372; 96374; 99284; J1650; J1940; J7040

== ENCOUNTER 2018-01-09 12:04 | Outpatient (CLI) | payer SELFPAY | END 2018-01-09 12:05 | disposition home or self-care (01) | LOC: VAS 12:04 | PROVIDERS: ATTEND Emergency Medicine | DX: M79.604 Pain in right leg (principal); M79.89 Other specified soft tissue disorders ==

== ENCOUNTER 2018-01-17 20:56 | Emergency (ER) | payer SELFPAY ==
[2018-01-17 21:48] LABS: Hematocrit 38.1 % (35.5-45.6); Hemoglobin 12.4 gm/dl (11.8-15.2); Mean Corpuscular HGB Conc 33 % (32-34); Mean Corpuscular Hemoglobin 30 pg (28-32); Mean Corpuscular Volume 92 fl (84-94); Platelet Count 308 K/mm3 (140-440); Red Blood Count 4.14 M/mm3 (3.65-5.03); Red Cell Distribution Width 15.4 % (13.2-15.2)
[2018-01-17 21:59] LABS: Bilirubin,Urine NEG (Negative); Blood,Urine MOD (Negative); Color,Urine Yellow (Yellow); Mucus,Urine FEW /HPF; RBC,Urine > 182.0 /HPF (0.0-6.0); Urobilinogen,Urine < 2.0 mg/dL (<2.0)
[2018-01-17 22:07] LABS: Albumin 2.7 g/dL (3.9-5); Calcium 7.9 mg/dL (8.4-10.2)
[2018-01-17 22:47] LABS: Basophils % (Manual) 0 % (0.0-1.8); Eosinophils % (Manual) 0 % (0.0-4.3); Total Cells Counted 100
[2018-01-17 22:48] LABS: Platelet Estimate Consistent w Auto
[2018-01-18] MEDS ORDERED: LOMOTIL PO ONE (00:18)
[2018-01-18] MEDS ORDERED: NACL 0.9% 1000 ML 1,000 ML IV ONE (00:18)
[2018-01-18] MEDS ORDERED: ZOFRAN IV ONE (00:18)
--- NOTE | 2018-01-18 00:23 | Emergency Department Report ---
HPI - General Chief Complaint: Abdominal Pain Time Seen by Provider: 01/18/18 00:08 - HPI HPI: Room 26 The patient is a 52-year-old male presenting with a chief complaint of diarrhea. The patient states for the past 11 days she's had frequent diarrhea anytime he attempts to eat. Patient also admits to nausea and vomiting for the same amount of time. Patient admits to midepigastric abdominal pain. The patient states he was diagnosed with pancreatitis last month for the first time. Patient admits to fever 101F at times. Patient denies dysuria. The patient gives his pain score of 10/10 Location: Abdomen Duration: 11 days Quality: Pain Severity: 10/10 Modifying factors: [see above] Context: [see above] Mode of transportation: The patient states he walked to the emergency department and there are no visitors present ED Past Medical Hx - Past Medical History Hx Hypertension: Yes Hx GERD: Yes (PUD) Hx Arthritis: Yes Hx Headaches / Migraines: Yes Hx Psychiatric Treatment: Yes (Bipolar,alcohol abuse,crack) Hx Asthma: Yes Additional medical history: Right foot/toe injury, Right knne and right hand pain,pancreatitis - Surgical History Additional Surgical History: Right knee surgery, Right hand surgery - Family History Family history: no significant - Social History Smoking Status: Current Every Day Smoker (1/3 pack per day) Substance Use Type: Alcohol (history of heavy alcohol consumption. None 24 days), Cocaine (crack use. Last used 12/17/2017), Methamphetamines, Other - Medications Home Medications: Home Medications Medication Instructions Recorded Confirmed Last Taken Type Benztropine [Cogentin] 1 tab PO 01/31/17 Unknown History Dicyclomine [Bentyl] 20 tab PO 01/31/17 Unknown History Divalproex [Ken Davila] 1 tab PO HS 01/31/17 01/31/17 Unknown History Famotidine [Pepcid] 20 mg PO BID 01/31/17 01/31/17 Unknown History Famotidine [Pepcid] 20 mg PO BID #15 tablet 01/31/17 Unknown Rx Ondansetron [Zofran ODT TAB] 4 tab PO 01/31/17 Unknown History Percocet 5/325 mg 5 - 325 tab PO 01/31/17 Unknown History Polyethylene Glycol 3350 [Miralax 17 gm PO QDAY #7 packet 01/31/17 Unknown Rx 3350] Prazosin [Minipress] 2 cap PO 01/31/17 Unknown History traZODone [Desyrel] 100 mg PO QHS 01/31/17 01/31/17 Unknown History Sulfamethoxazole/Trimethoprim 1 each PO BID #20 tablet 01/09/18 Unknown Rx [Bactrim DS TAB] traMADol [Ultram 50 MG tab] 50 mg PO Q6HR PRN #20 tablet 01/09/18 Unknown Rx Ciprofloxacin HCl [Ciprofloxacin 500 mg PO BID #20 tablet 01/18/18 Unknown Rx TAB] Diphenoxylate HCl/Atropine 2 each PO QID PRN #20 tablet 01/18/18 Unknown Rx [Lomotil 2.5-0.025 mg Tablet] HYDROcodone/APAP 5-325 [[place] 1 - 2 each PO Q6HR PRN #14 tablet 01/18/18 Unknown Rx 5/325] Promethazine [Phenergan TAB] 25 mg PO Q6HR PRN #20 tab 01/18/18 Unknown Rx ED Review of Systems ROS: Stated complaint: ABD PAIN Other details as noted in HPI Constitutional: fever Eyes: denies: eye pain ENT: denies: throat pain Cardiovascular: denies: chest pain Gastrointestinal: abdominal pain, nausea, vomiting, diarrhea. denies: constipation Genitourinary: denies: dysuria Musculoskeletal: denies: back pain Neurological: denies: headache Physical Exam - Physical Exam Vital Signs: Vital Signs 01/17/18 01/17/18 21:03 21:17 Temperature 98.5 F 98.5 F Pulse Rate 82 87 Respiratory 16 18 Rate Blood Pressure 134/98 134/98 O2 Sat by Pulse 100 100 Oximetry Physical Exam: GENERAL: The patient is well-developed well-nourished male walking in room not appearing to be in acute distress HEENT: Normocephalic. Atraumatic. Extraocular motions are intact. NECK: Trachea midline CHEST/LUNGS: Clear to auscultation. There is no respiratory distress noted. HEART/CARDIOVASCULAR: Regular. There is no tachycardia. There is no gallop rub or murmur. ABDOMEN: Abdomen is soft and nontender to palpation in the right upper quadrant , right lower quadrant, left lower quadrant or left upper quadrant. There is discomfort in the midepigastric region. Patient has normal bowel sounds. There is no abdominal distention. SKIN: There is no rash. There is no edema. There is no diaphoresis. NEURO: The patient is awake, alert, and oriented. The patient is cooperative. The patient has normal speech and gait. MUSCULOSKELETAL: There is right CVA tenderness. There is no evidence of acute injury. ED Course Vital Signs 01/17/18 01/17/18 21:03 21:17 Temperature 98.5 F 98.5 F Pulse Rate 82 87 Respiratory 16 18 Rate Blood Pressure 134/98 134/98 O2 Sat by Pulse 100 100 Oximetry - Reevaluation(s) Reevaluation #1: 01/18/18 01:31 Patient tolerating po ED Medical Decision Making - Lab Data Result diagrams: 01/17/18 21:27 01/17/18 21:27 Laboratory Tests 01/17/18 01/17/18 01/17/18 21:27 21:27 Unknown WBC 5.2 RBC 4.14 Hgb 12.4 Hct 38.1 MCV 92 MCH 30 MCHC 33 RDW 15.4 H Plt Count 308 Baso % (Auto) Luster Repairer Add Manual Diff Complete Total Counted 100 Seg Neuts % (Manual) 73.0 H Band Neutrophils % 0 Lymphocytes % (Manual) 25.0 Reactive Lymphs % (Man) 0 Monocytes % (Manual) 2.0 Eosinophils % (Manual) 0 Basophils % (Manual) 0 Metamyelocytes % 0 Myelocytes % 0 Promyelocytes % 0 Blast Cells % 0 Nucleated RBC % Not Reportable Seg Neutrophils # Man 3.8 Band Neutrophils # 0.0 Lymphocytes # (Manual) 1.3 Abs React Lymphs (Man) 0.0 Monocytes # (Manual) 0.1 Eosinophils # (Manual) 0.0 Basophils # (Manual) 0.0 Metamyelocytes # 0.0 Myelocytes # 0.0 Promyelocytes # 0.0 Blast Cells # 0.0 WBC Morphology Not Reportable Hypersegmented Neuts Not Reportable Hyposegmented Neuts Not Reportable Hypogranular Neuts Not Reportable Smudge Cells Not Reportable Toxic Granulation Not Reportable Toxic Vacuolation Not Reportable Dohle Bodies Not Reportable Pelger-Huet Anomaly Not Reportable Joey Rods Not Reportable Platelet Estimate Consistent w auto Clumped Platelets Not Reportable Plt Clumps, EDTA Not Reportable Large Platelets Not Reportable Giant Platelets Not Reportable Platelet Satelliting Not Reportable Plt Morphology Comment Not Reportable RBC Morphology Not Reportable Dimorphic RBCs Not Reportable Polychromasia Not Reportable Hypochromasia Not Reportable Poikilocytosis Not Reportable Anisocytosis Not Reportable Microcytosis Not Reportable Macrocytosis Not Reportable Spherocytes Not Reportable Pappenheimer Bodies Not Reportable Sickle Cells Not Reportable Target Cells Not Reportable Tear Drop Cells Not Reportable Ovalocytes Not Reportable Helmet Cells Not Reportable [place] Bodies Not Reportable [place] Rings Not Reportable Crooks Cells Not Reportable Bite Cells Not Reportable Crenated Cell Not Reportable Elliptocytes Not Reportable Acanthocytes (Spur) Not Reportable Rouleaux Not Reportable Hemoglobin C Crystals Not Reportable Schistocytes Not Reportable Malaria parasites Not Reportable Abel Bodies Not Reportable Hem Pathologist Commnt No Sodium 138 Potassium 4.0 Chloride 107.4 H Carbon Dioxide 19 L Anion Gap 16 BUN 13 Creatinine 1.6 H Estimated GFR 55 BUN/Creatinine Ratio 8 Glucose 129 H Calcium 7.9 L Total Bilirubin 0.40 AST 27 ALT 21 Alkaline Phosphatase 129 Total Protein 6.2 L Albumin 2.7 L Albumin/Globulin Ratio 0.8 Lipase 6 L Urine Color Yellow Urine Turbidity Clear Urine pH 5.0 Ur Specific [place] 1.016 Urine Protein 100 mg/dl Urine Glucose (UA) Neg Urine Ketones Neg Urine Blood Mod Urine Nitrite Neg Urine Bilirubin Neg Urine Urobilinogen < 2.0 Ur Leukocyte Esterase Mod Urine WBC (Auto) 54.0 H Urine RBC (Auto) > 182.0 U Epithel Cells (Auto) < 1.0 Urine Mucus Few - Radiology Data Radiology results: report reviewed (CT abdomen and pelvis), image reviewed (CT abdomen and pelvis) - Differential Diagnosis pyelonephritis, pancreatitis, partial small bowel obstruction Critical care attestation.: If time is entered above; I have spent that time in minutes in the direct care of this critically ill patient, excluding procedure time. ED Disposition Clinical Impression: Acute abdominal pain, Pyelonephritis, Nausea vomiting and diarrhea Disposition: DC-01 TO HOME OR SELFCARE Is pt being admited?: No Does the pt Need Aspirin: No Condition: Stable Instructions: Acute Nausea and Vomiting (ED) Additional Instructions: Return to the emergency department immediately should you develop worsening symptoms, fever, inability to tolerate food or liquid or any other concerns. Prescriptions: Ciprofloxacin HCl [Ciprofloxacin TAB] 500 mg PO BID #20 tablet Diphenoxylate HCl/Atropine [Lomotil 2.5-0.025 mg Tablet] 2 each PO QID PRN #20 tablet PRN Reason: Diarrhea HYDROcodone/APAP 5-325 [[place] 5/325] 1 - 2 each PO Q6HR PRN #14 tablet PRN Reason: Pain Promethazine [Phenergan TAB] 25 mg PO Q6HR PRN #20 tab PRN Reason: Nausea Referrals: [facility] [Outside] - 3-5 Days LAYLA LISA MD [Staff Physician] - [facility] (Dr. Lisa is a primary physician. Please follow up with him to be established as a patient) NROBERTO FAGAN MD [Staff Physician] - 3-5 Days (Dr. Fagan is a [employer] worker. Please follow up with him for further evaluation) Time of Disposition: 01:31
--- NOTE | 2018-01-18 01:06 | Cat Scan Report ---
FINAL REPORT PROCEDURE: CT ABDOMEN PELVIS WO CON TECHNIQUE: Computerized axial tomography of the abdomen and pelvis was performed without intravenous contrast. This study is performed without intravascular contrast material and its sensitivity for abdominal and pelvic pathology, including neoplasms, inflammation, abscess, free fluid, thrombosis, arterial dissection and infarction, is reduced compared with a contrast enhanced study. HISTORY: epigastric abdominal pain nausea vomiting diarrhea COMPARISON: No prior studies are available for comparison. FINDINGS: Visualized lower thorax: No significant abnormality. Liver: Normal size and attenuation. Spleen: Normal size and attenuation. Gallbladder and biliary system: There are stones identified within the gallbladder. No dilatation of the biliary ductal system. Pancreas: There are few calcifications identified in the head of the pancreas. Chronic pancreatitis is possible.. Adrenals: Normal. Kidneys: The size of the kidneys is normal. There is mild left hydronephrosis. There is a left ureteral stent with the proximal pigtail identified within the extrarenal pelvis region. The distal pigtail is identified within the urinary bladder. There is a cyst off of the inferior right renal cortex this measures up to 3.5 centimeters. A cyst off the lateral left renal cortex measures 2.5 centimeters.. GI tract: No obstruction. No ileus or enteritis. There is significant fecal debris in the colon. The appendix is not visualized on this study.. Lymph nodes and mesentery: Normal. Vasculature: Normal. Bladder: Normal. Reproductive organs: Normal. Peritoneum: No free fluid. Musculoskeletal structures: No significant abnormality. Other: None. IMPRESSION: There is a left ureteral stent as discussed. No urinary tract obstruction is noted. Bilateral renal cortical cysts are identified. There is no evidence of intestinal obstruction. Significant fecal debris in the colon may represent constipation. Cholelithiasis..
[2018-01-18 04:58] VITALS: BP 135/89
== END 2018-01-18 02:00 | disposition home or self-care (01) ==
LOC: ED 20:56
DX: N12 Tubulo-interstitial nephritis, not specified as acute or chronic (principal); R19.7 Diarrhea, unspecified; K21.9 Gastro-esophageal reflux disease without esophagitis; M19.90 Unspecified osteoarthritis, unspecified site; G43.909 Migraine, unspecified, not intractable, without status migrainosus; F31.9 Bipolar disorder, unspecified; F17.210 Nicotine dependence, cigarettes, uncomplicated; F14.10 Cocaine abuse, uncomplicated; F15.10 Other stimulant abuse, uncomplicated; Z88.0 Allergy status to penicillin; Z88.6 Allergy status to analgesic agent
CPT/HCPCS: 36415; 74176; 80053; 81001; 83690; 85007; 85025; 96361; 96374; 99284; J2405; J7030

== ENCOUNTER 2018-01-25 18:47 | Emergency (ER) | payer SELFPAY ==
--- NOTE | 2018-01-25 20:34 | XRay Report ---
FINAL REPORT PROCEDURE: XR KNEE 1-2V RT TECHNIQUE: Right knee radiographs, AP and lateral views. HISTORY: right knee pain COMPARISON: No prior studies are available for comparison. FINDINGS: Postsurgical changes are visualized in the knee from prior ACL reconstruction. Tunneling defect and anchoring devices are visualized. Moderate size marginal osteophytic spurs project in the medial compartment of the knee. There sclerosis of the opposing articular surfaces. Small marginal osteophytic spurs project in the patellar femoral joint space and lateral compartment of the knee. Small joint effusion is present. No fracture or dislocation is seen. IMPRESSION: Postsurgical changes present as described from prior ACL reconstruction. Moderate osteoarthritic changes seen in the medial compartment of the knee, mild changes seen in the lateral compartment and in the patellar femoral joint space. Small joint effusion is also visualized. No other abnormalities are seen.
--- NOTE | 2018-01-25 23:37 | Emergency Department Report ---
ED General Adult HPI - General Chief complaint: Pain General Stated complaint: RIGHT KNEE PAIN Time Seen by Provider: 01/25/18 23:32 Source: patient Mode of arrival: Ambulatory Limitations: No Limitations - History of Present Illness Initial comments: Patient was here in 01/17/[address] Nunez and was treated for abdominal pain and pyelonephritis and is given ciprofloxacin, promethazine, hydrocodone and Lomotil. He said he is feeling better and is not having any urinary symptoms. - Related Data Home Medications Medication Instructions Recorded Confirmed Last Taken Benztropine [Cogentin] 1 tab PO 01/31/17 Unknown Dicyclomine [Bentyl] 20 tab PO 01/31/17 Unknown Divalproex [Ken Davila] 1 tab PO HS 01/31/17 01/31/17 Unknown Famotidine [Pepcid] 20 mg PO BID 01/31/17 01/31/17 Unknown Ondansetron [Zofran ODT TAB] 4 tab PO 01/31/17 Unknown Percocet 5/325 mg 5 - 325 tab PO 01/31/17 Unknown Prazosin [Minipress] 2 cap PO 01/31/17 Unknown traZODone [Desyrel] 100 mg PO QHS 01/31/17 01/31/17 Unknown Previous Rx's Medication Instructions Recorded Last Taken Type Famotidine [Pepcid] 20 mg PO BID #15 tablet 01/31/17 Unknown Rx Polyethylene Glycol 3350 [Miralax 17 gm PO QDAY #7 packet 01/31/17 Unknown Rx 3350] Sulfamethoxazole/Trimethoprim 1 each PO BID #20 tablet 01/09/18 Unknown Rx [Bactrim DS TAB] Ciprofloxacin HCl [Ciprofloxacin 500 mg PO BID #20 tablet 01/18/18 Unknown Rx TAB] Diphenoxylate HCl/Atropine 2 each PO QID PRN #20 tablet 01/18/18 Unknown Rx [Lomotil 2.5-0.025 mg Tablet] HYDROcodone/APAP 5-325 [[place] 1 - 2 each PO Q6HR PRN #14 tablet 01/18/18 Unknown Rx 5/325] Promethazine [Phenergan TAB] 25 mg PO Q6HR PRN #20 tab 01/18/18 Unknown Rx traMADol [Ultram 50 MG tab] 50 mg PO Q6HR PRN #20 tablet 01/26/18 Unknown Rx Allergies Allergy/AdvReac Type Severity Reaction Status Date / Time aspirin Allergy Itching Verified 07/28/16 10:20 Penicillins Allergy Hives Verified 07/28/16 10:20 ED Review of Systems ROS: Stated complaint: RIGHT KNEE PAIN Other details as noted in HPI ED Past Medical Hx - Past Medical History Hx Hypertension: Yes Hx GERD: Yes (PUD) Hx Arthritis: Yes Hx Headaches / Migraines: Yes Hx Psychiatric Treatment: Yes (Bipolar,alcohol abuse,crack) Hx Asthma: Yes Additional medical history: Right foot/toe injury, Right knne and right hand pain,pancreatitis - Surgical History Additional Surgical History: Right knee surgery, Right hand surgery - Social History Smoking Status: Current Every Day Smoker Substance Use Type: None Other Social History: Patient is - Medications Home Medications: Home Medications Medication Instructions Recorded Confirmed Last Taken Type Benztropine [Cogentin] 1 tab PO 01/31/17 Unknown History Dicyclomine [Bentyl] 20 tab PO 01/31/17 Unknown History Divalproex [Ken Davila] 1 tab PO HS 01/31/17 01/31/17 Unknown History Famotidine [Pepcid] 20 mg PO BID 01/31/17 01/31/17 Unknown History Famotidine [Pepcid] 20 mg PO BID #15 tablet 01/31/17 Unknown Rx Ondansetron [Zofran ODT TAB] 4 tab PO 01/31/17 Unknown History Percocet 5/325 mg 5 - 325 tab PO 01/31/17 Unknown History Polyethylene Glycol 3350 [Miralax 17 gm PO QDAY #7 packet 01/31/17 Unknown Rx 3350] Prazosin [Minipress] 2 cap PO 01/31/17 Unknown History traZODone [Desyrel] 100 mg PO QHS 01/31/17 01/31/17 Unknown History Sulfamethoxazole/Trimethoprim 1 each PO BID #20 tablet 01/09/18 Unknown Rx [Bactrim DS TAB] Ciprofloxacin HCl [Ciprofloxacin 500 mg PO BID #20 tablet 01/18/18 Unknown Rx TAB] Diphenoxylate HCl/Atropine 2 each PO QID PRN #20 tablet 01/18/18 Unknown Rx [Lomotil 2.5-0.025 mg Tablet] HYDROcodone/APAP 5-325 [[place] 1 - 2 each PO Q6HR PRN #14 tablet 01/18/18 Unknown Rx 5/325] Promethazine [Phenergan TAB] 25 mg PO Q6HR PRN #20 tab 01/18/18 Unknown Rx traMADol [Ultram 50 MG tab] 50 mg PO Q6HR PRN #20 tablet 01/26/18 Unknown Rx ED Physical Exam - General Limitations: No Limitations ED Course Vital Signs 01/25/18 01/26/18 01/26/18 19:19 00:15 00:20 Temperature 100.0 F H Pulse Rate 84 84 99 H Respiratory 18 Rate Blood Pressure 111/83 Blood Pressure 126/74 [Left] O2 Sat by Pulse 98 Oximetry Vital Signs 01/25/18 01/26/18 19:19 00:15 Temperature 100.0 F H Pulse Rate 84 84 Respiratory 18 Rate Blood Pressure 111/83 Blood Pressure 126/74 [Left] O2 Sat by Pulse 98 Oximetry - Reevaluation(s) Reevaluation #1: 01/26/18 00:17 Patient given Motrin 800 mg by mouth and emergency room for right knee pain. Kuldip wrap applied to site please see procedure note for detail - Orthopedic Splinting/Casting Injury #1 Side: right Upper Extremity Immobilizer: Kuldip wrap Additional Comments: good color, sensation and movement and temperature to pulses both feet. ED Medical Decision Making - Radiology Data Radiology results: report reviewed X-ray of right knee reveals small joint effusion. No fracture dislocation and postsurgical changes stable Patient: DIANNE TORRES MR#: [id number] : 1965 Acct:[id number] Age/Sex: 52 / M ADM Date: 01/25/18 Loc: ED Attending Dr: Ordering Physician: DONAL RAMIREZ MD Date of Service: 01/25/18 Procedure(s): XR knee 1-2V RT Accession Number(s): [id number] cc: DONAL RAMIREZ MD Fluoro Time In Minutes: FINAL REPORT PROCEDURE: XR KNEE 1-2V RT TECHNIQUE: Right knee radiographs, AP and lateral views. HISTORY: right knee pain COMPARISON: No prior studies are available for comparison. FINDINGS: Postsurgical changes are visualized in the knee from prior ACL reconstruction. Tunneling defect and anchoring devices are visualized. Moderate size marginal osteophytic spurs project in the medial compartment of the knee. There sclerosis of the opposing articular surfaces. Small marginal osteophytic spurs project in the patellar femoral joint space and lateral compartment of the knee. Small joint effusion is present. No fracture or dislocation is seen. IMPRESSION: Postsurgical changes present as described from prior ACL reconstruction. Moderate osteoarthritic changes seen in the medial compartment of the knee, mild changes seen in the lateral compartment and in the patellar femoral joint space. Small joint effusion is also visualized. No other abnormalities are seen. Transcribed By: DFN Dictated By: FRAN VAZQUEZ MD Electronically Authenticated By: FRAN VAZQUEZ MD Signed Date/Time: 01/25/182027 DD/ 27 TD/TT: 01/25/182027 - Medical Decision Making ED course: A navarro he reports right knee pain and reports that he has history of knee surgery and torn ligaments and had surgery about 10 years ago at [facility] in [place]. He said he started having knee pain again with some swelling. Denies any redness. Denies any fever or chills. Pain is 7 out of 10 for similar movement. Patient is able to ambulate. Exam of knee revealed patient with minimal swelling to right knee when compared to left knee. He has full range of motion reports pain with flexion and extension. No variability and temperature to both knees. I discussed the patient that his x- ray shows that he has small joint effusion but surgical site remained stable. Please refer to details on the next her results and radiology section. Patient stable and I discussed with him that he needs to follow-up with Dr. Palomares who is orthopedic doctor to call tomorrow to schedule an appointment. He was understanding and and discharged home in stable condition. Critical care attestation.: If time is entered above; I have spent that time in minutes in the direct care of this critically ill patient, excluding procedure time. ED Disposition Clinical Impression: Knee effusion, right Right knee pain Qualifiers: Chronicity: unspecified Qualified Code(s): M25.561 - Pain in right knee Disposition: DC-01 TO HOME OR SELFCARE Is pt being admited?: No Does the pt Need Aspirin: No Condition: Stable Instructions: Knee Effusion (ED), Knee Pain (ED), Arthralgia (ED), Knee Exercises (GEN), RICE Therapy (ED) Additional Instructions: Please follow up with primary care as recommended Increase fluid intake Take medication as prescribed . Referred to discharge instruction in Rice therapy. follow-up with orthopedic doctor as instructed. Return to the emergency department immediately should you develop worsening symptoms, fever, inability to tolerate food or liquid or any other concerns. Prescriptions: traMADol [Ultram 50 MG tab] 50 mg PO Q6HR PRN #20 tablet PRN Reason: Pain Referrals: PRIMARY CAREMD [Primary Care Provider] - 3-5 Days [facility] [Outside] - 01/27/18 NEERU PALOMARES MD [Staff Physician] - 01/27/18 Forms: Work/School Release Form(ED)
[2018-01-26 00:16] VITALS: BP 126/74
[2018-01-26] MEDS ORDERED: MOTRIN PO ONE (00:16)
== END 2018-01-26 00:42 | disposition home or self-care (01) ==
LOC: ED 18:47
DX: M25.461 Effusion, right knee (principal); I10 Essential (primary) hypertension; K21.9 Gastro-esophageal reflux disease without esophagitis; M19.90 Unspecified osteoarthritis, unspecified site; G43.909 Migraine, unspecified, not intractable, without status migrainosus; J45.909 Unspecified asthma, uncomplicated; F31.9 Bipolar disorder, unspecified; F17.200 Nicotine dependence, unspecified, uncomplicated; Z88.6 Allergy status to analgesic agent; Z88.0 Allergy status to penicillin
CPT/HCPCS: 99283

== ENCOUNTER 2018-01-26 20:40 | Emergency (ER) | payer SELFPAY ==
[2018-01-26] MEDS ORDERED: TYLENOL ONE (21:00)
[2018-01-26] MEDS ORDERED: TYLENOL PO ONE (21:00)
[2018-01-26 23:56] LABS: Bilirubin,Urine NEG (Negative); Blood,Urine MOD (Negative); Color,Urine Red (Yellow); Hyaline Casts,Urine 13 /LPF; Urobilinogen,Urine < 2.0 mg/dL (<2.0)
[2018-01-26 23:59] LABS: RBC,Urine > 182.0 /HPF (0.0-6.0); WBC,Urine > 182.0 /HPF (0.0-6.0)
--- NOTE | 2018-01-27 07:53 | Emergency Department Report ---
ED Abdominal Pain HPI - General Chief Complaint: Back Pain/Injury Stated Complaint: RIGHT FLANK PAIN Time Seen by Provider: 01/27/18 07:28 Source: patient Mode of arrival: Ambulatory Limitations: No Limitations - History of Present Illness Initial Comments: Patient with a history of left renal stent never had a removed was seen here several days ago for UTI and pyelonephritis. Says he never got his antibiotics. Says he doesn't have any money. He states that he's had intermittent temp to 100 with occasional intermittent nausea vomiting. He states he quit doing drugs and alcohol. Does have history pancreatitis and bipolar. He does continue smoke. He lives in a transitional housing situation. Says he never got the antibiotics here for evaluation of intermittent fever and intermittent nausea vomiting with history UTI never treated with history of renal stents MD Complaint: abdominal pain, flank pain -: hour(s), unknown Location: bilateral flank Severity: mild, moderate Severity scale (0 -10): 9 Quality: cramping Consistency: intermittent Improves With: nothing Associated Symptoms: nausea, fever - Related Data Home Medications Medication Instructions Recorded Confirmed Last Taken Benztropine [Cogentin] 1 tab PO 01/31/17 Unknown Dicyclomine [Bentyl] 20 tab PO 01/31/17 Unknown Divalproex [Ken Davila] 1 tab PO HS 01/31/17 01/31/17 Unknown Famotidine [Pepcid] 20 mg PO BID 01/31/17 01/31/17 Unknown Ondansetron [Zofran ODT TAB] 4 tab PO 01/31/17 Unknown Percocet 5/325 mg 5 - 325 tab PO 01/31/17 Unknown Prazosin [Minipress] 2 cap PO 01/31/17 Unknown traZODone [Desyrel] 100 mg PO QHS 01/31/17 01/31/17 Unknown Previous Rx's Medication Instructions Recorded Last Taken Type Famotidine [Pepcid] 20 mg PO BID #15 tablet 01/31/17 Unknown Rx Polyethylene Glycol 3350 [Miralax 17 gm PO QDAY #7 packet 01/31/17 Unknown Rx 3350] Sulfamethoxazole/Trimethoprim 1 each PO BID #20 tablet 01/09/18 Unknown Rx [Bactrim DS TAB] Ciprofloxacin HCl [Ciprofloxacin 500 mg PO BID #20 tablet 01/18/18 Unknown Rx TAB] Diphenoxylate HCl/Atropine 2 each PO QID PRN #20 tablet 01/18/18 Unknown Rx [Lomotil 2.5-0.025 mg Tablet] HYDROcodone/APAP 5-325 [[place] 1 - 2 each PO Q6HR PRN #14 tablet 01/18/18 Unknown Rx 5/325] Promethazine [Phenergan TAB] 25 mg PO Q6HR PRN #20 tab 01/18/18 Unknown Rx traMADol [Ultram 50 MG tab] 50 mg PO Q6HR PRN #20 tablet 01/26/18 Unknown Rx Allergies Allergy/AdvReac Type Severity Reaction Status Date / Time aspirin Allergy Itching Verified 07/28/16 10:20 Penicillins Allergy Hives Verified 07/28/16 10:20 ED Review of Systems ROS: Stated complaint: RIGHT FLANK PAIN Other details as noted in HPI Comment: All other systems reviewed and negative Constitutional: fever, malaise ENT: denies: dental pain, hearing loss, epistaxis Respiratory: denies: shortness of breath, SOB with exertion, SOB at rest, stridor Cardiovascular: denies: chest pain, palpitations, dyspnea on exertion, orthopnea , edema, syncope, paroxysmal nocturnal dyspnea Gastrointestinal: abdominal pain, nausea. denies: vomiting, diarrhea, constipation, hematemesis, melena, hematochezia Neurological: denies: headache, weakness, numbness, paresthesias, confusion, abnormal gait, vertigo ED Past Medical Hx - Past Medical History Previous Medical History?: Yes Hx Hypertension: Yes Hx GERD: Yes (PUD) Hx Arthritis: Yes Hx Headaches / Migraines: Yes Hx Psychiatric Treatment: Yes (Bipolar,alcohol abuse,crack) Hx Asthma: Yes Additional medical history: Right foot/toe injury, Right knne and right hand pain,pancreatitis - Surgical History Past Surgical History?: Yes Additional Surgical History: Right knee surgery, Right hand surgery - Social History Smoking Status: Current Every Day Smoker Substance Use Type: None - Medications Home Medications: Home Medications Medication Instructions Recorded Confirmed Last Taken Type Benztropine [Cogentin] 1 tab PO 01/31/17 Unknown History Dicyclomine [Bentyl] 20 tab PO 01/31/17 Unknown History Divalproex [Ken Davila] 1 tab PO HS 01/31/17 01/31/17 Unknown History Famotidine [Pepcid] 20 mg PO BID 01/31/17 01/31/17 Unknown History Famotidine [Pepcid] 20 mg PO BID #15 tablet 01/31/17 Unknown Rx Ondansetron [Zofran ODT TAB] 4 tab PO 01/31/17 Unknown History Percocet 5/325 mg 5 - 325 tab PO 01/31/17 Unknown History Polyethylene Glycol 3350 [Miralax 17 gm PO QDAY #7 packet 01/31/17 Unknown Rx 3350] Prazosin [Minipress] 2 cap PO 01/31/17 Unknown History traZODone [Desyrel] 100 mg PO QHS 01/31/17 01/31/17 Unknown History Sulfamethoxazole/Trimethoprim 1 each PO BID #20 tablet 01/09/18 Unknown Rx [Bactrim DS TAB] Ciprofloxacin HCl [Ciprofloxacin 500 mg PO BID #20 tablet 01/18/18 Unknown Rx TAB] Diphenoxylate HCl/Atropine 2 each PO QID PRN #20 tablet 01/18/18 Unknown Rx [Lomotil 2.5-0.025 mg Tablet] HYDROcodone/APAP 5-325 [[place] 1 - 2 each PO Q6HR PRN #14 tablet 01/18/18 Unknown Rx 5/325] Promethazine [Phenergan TAB] 25 mg PO Q6HR PRN #20 tab 01/18/18 Unknown Rx traMADol [Ultram 50 MG tab] 50 mg PO Q6HR PRN #20 tablet 01/26/18 Unknown Rx ED Physical Exam - General Limitations: No Limitations General appearance: alert, anxious - Head Head exam: Present: atraumatic, normocephalic - Eye Eye exam: Present: PERRL, EOMI - ENT ENT exam: Present: normal exam, normal orophraynx - Neck Neck exam: Present: normal inspection. Absent: tenderness, meningismus - Respiratory Respiratory exam: Present: normal lung sounds bilaterally. Absent: respiratory distress, wheezes, rales, rhonchi, stridor, chest wall tenderness, accessory muscle use, decreased breath sounds, prolonged expiratory - Cardiovascular Cardiovascular Exam: Present: regular rate, normal rhythm, normal heart sounds - GI/Abdominal GI/Abdominal exam: Present: soft. Absent: distended, tenderness, guarding, rebound, rigid, mass, pulsatile mass - Extremities Exam Extremities exam: Present: normal capillary refill. Absent: calf tenderness - Back Exam Back exam: Present: tenderness, CVA tenderness (R), CVA tenderness (L) - Neurological Exam Neurological exam: Present: alert, oriented X3, CN II-XII intact. Absent: motor sensory deficit - Skin Skin exam: Absent: diaphoretic, erythema, urticaria, vesicles, petechiae, pallor , abrasion, ecchymosis ED Course Vital Signs 01/26/18 01/27/18 01/27/18 20:42 01:11 01:18 Temperature 98.4 F 97.7 F Pulse Rate 98 H 57 L Respiratory 20 17 Rate Blood Pressure 125/95 Blood Pressure 145/98 [Left] O2 Sat by Pulse 100 91 97 Oximetry 01/27/18 01/27/18 01/27/18 02:00 03:00 05:00 Temperature Pulse Rate Respiratory Rate Blood Pressure 142/87 126/83 138/91 Blood Pressure [Left] O2 Sat by Pulse 100 100 100 Oximetry 01/27/18 01/27/18 01/27/18 06:00 07:00 08:00 Temperature 97.9 F Pulse Rate 54 L Respiratory 16 Rate Blood Pressure 140/95 146/89 Blood Pressure 137/95 [Left] O2 Sat by Pulse 100 100 100 Oximetry 01/27/18 09:45 Temperature Pulse Rate Respiratory 14 Rate Blood Pressure Blood Pressure [Left] O2 Sat by Pulse Oximetry ED Medical Decision Making - Lab Data Result diagrams: 01/27/18 07:52 01/27/18 07:52 - Radiology Data Radiology results: report reviewed - Medical Decision Making Patient with stents for several months on the left side in the ureter stent does appear to be functional the right side does show some dilatation of the distal ureter without proximal hydronephrosis case was discussed with Dr. Dickens [facility] social reevaluate the patient needed. Patient does likely have [employer] pyelonephritis he does have wbc's in the urine and he never as antibiotics. He was given antibiotic's in the ED he will need to be further admitted for a comp K UTI Critical care attestation.: If time is entered above; I have spent that time in minutes in the direct care of this critically ill patient, excluding procedure time. ED Disposition Clinical Impression: Complicated urinary tract infection, Retained ureteral stent Disposition: OP ADMIT IP TO THIS HOSP Is pt being admited?: Yes Condition: Stable Referrals: PRIMARY CARE, [Primary Care Provider] - 3-5 Days Time of Disposition: 11:33
[2018-01-27] MEDS ORDERED: ZOFRAN IV ONE (07:54)
[2018-01-27] MEDS ORDERED: LEVAQUIN 750MG/150ML 750 MG/150 ML BAG IV ONE (07:54)
[2018-01-27] MEDS ORDERED: NACL 0.9% 1000 ML 1,000 ML IV ONE (07:54)
[2018-01-27 08:11] LABS: Basophils # (Auto) 0.2 K/mm3 (0.0-0.1); Basophils % (Auto) 2.9 % (0.0-1.8); Eosinophils # (Auto) 0.3 K/mm3 (0.0-0.4); Eosinophils % (Auto) 4.4 % (0.0-4.3); Hematocrit 33.7 % (35.5-45.6); Hemoglobin 10.9 gm/dl (11.8-15.2); Lymphocytes # (Auto) 1.5 K/mm3 (1.2-5.4); Lymphocytes % (Auto) 23.9 % (13.4-35.0); Mean Corpuscular HGB Conc 32 % (32-34); Mean Corpuscular Hemoglobin 29 pg (28-32); Mean Corpuscular Volume 91 fl (84-94); Monocytes # (Auto) 0.4 K/mm3 (0.0-0.8); Monocytes % (Auto) 6.4 % (0.0-7.3); Platelet Count 282 K/mm3 (140-440); Red Blood Count 3.71 M/mm3 (3.65-5.03)
--- NOTE | 2018-01-27 08:35 | Cat Scan Report ---
CT scan of abdomen and pelvis without IV contrast: Compared to 01/18/18. History: Flank pain with stents. Findings: Scarring left lower lobe. No pleural or pericardial effusion. Normal liver. Multiple calculi in the gallbladder. Normal spleen and pancreas. Normal adrenals. Right and left kidney cortical cyst without interval change. Left ureteral stent/pigtail catheter without evidence of hydronephrosis. There is suspected diverticulum of bladder or a focal dilatation of the ureter near the entrance of the bladder at the UV junction. Proximally the ureter does not appear dilated. No free intraperitoneal fluid or air. No evidence of adenopathy. Normal aorta. Gaseous colon with large amount of fecal matter throughout the colon with suspected fecal impaction in rectum. No obvious evidence of appendicitis or diverticulitis. Impression: Multiple calculi in the gallbladder. Bilateral renal cysts. No interval change. 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 Diverticulum or focal dilatation of ureter at the right UV junction.
[2018-01-27 08:44] LABS: Alanine Aminotransferase 17 units/L (7-56); Albumin 2.2 g/dL (3.9-5); BUN/Creatinine Ratio 12; Blood Urea Nitrogen 15 mg/dL (9-20); Calcium 7.7 mg/dL (8.4-10.2); Hemolysis Index 22; Lipase 5 units/L (13-60)
[2018-01-27 09:23] LABS: Bilirubin,Urine NEG (Negative); Blood,Urine LG (Negative); Color,Urine Yellow (Yellow); Mucus,Urine FEW /HPF; Urobilinogen,Urine < 2.0 mg/dL (<2.0)
[2018-01-27 09:30] LABS: RBC,Urine > 182.0 /HPF (0.0-6.0)
[2018-01-27] MEDS ORDERED: TYLENOL PO ONE (09:38)
[2018-01-27 13:47] VITALS: BP 128/84
--- NOTE | 2018-01-28 08:11 | History and Physical Report ---
History of Present Illness Chief complaint: stomach pain History of present illness: 52 YO Male with HTN, GERD, OA, Migraine NIETO, Asthma, Bipolar Disorder presents to ED for evaluation of abdominal pain. Upon further evaluation, the patient complains of suprapubic discomfort. PT has prior evidence of UTI and was treated with oral antibiotics. Pt noncompliant with outpatient therapy. Pt seen and evaluated in ED and underwent CT Abdomen which was negative for acute intraabdominal findings. Pt medically optimized and back to usual state of health. Pt counseled regarding medication compliance. Pt instructed to f/u pcp 1wk, and urology 3-5 days for outpatient cystoscopy. Past History Past Medical History: GERD, hypertension, other (Bipolar) Past Surgical History: Other (Right Knee, Hand surgery, renal stent) Social history: . denies: smoking, alcohol abuse, prescription drug abuse Family history: hypertension Medications and Allergies Allergies Allergy/AdvReac Type Severity Reaction Status Date / Time aspirin Allergy Itching Verified 07/28/16 10:20 Penicillins Allergy Hives Verified 07/28/16 10:20 Home Medications Medication Instructions Recorded Confirmed Last Taken Type Benztropine [Cogentin] 1 tab PO 01/31/17 Unknown History Dicyclomine [Bentyl] 20 tab PO 01/31/17 Unknown History Divalproex [Ken Davila] 1 tab PO HS 01/31/17 01/31/17 Unknown History Famotidine [Pepcid] 20 mg PO BID 01/31/17 01/31/17 Unknown History Famotidine [Pepcid] 20 mg PO BID #15 tablet 01/31/17 Unknown Rx Ondansetron [Zofran ODT TAB] 4 tab PO 01/31/17 Unknown History Percocet 5/325 mg 5 - 325 tab PO 01/31/17 Unknown History Polyethylene Glycol 3350 [Miralax 17 gm PO QDAY #7 packet 01/31/17 Unknown Rx 3350] Prazosin [Minipress] 2 cap PO 01/31/17 Unknown History traZODone [Desyrel] 100 mg PO QHS 01/31/17 01/31/17 Unknown History Sulfamethoxazole/Trimethoprim 1 each PO BID #20 tablet 01/09/18 Unknown Rx [Bactrim DS TAB] Ciprofloxacin HCl [Ciprofloxacin 500 mg PO BID #20 tablet 01/18/18 Unknown Rx TAB] Diphenoxylate HCl/Atropine 2 each PO QID PRN #20 tablet 01/18/18 Unknown Rx [Lomotil 2.5-0.025 mg Tablet] HYDROcodone/APAP 5-325 [[place] 1 - 2 each PO Q6HR PRN #14 tablet 01/18/18 Unknown Rx 5/325] Promethazine [Phenergan TAB] 25 mg PO Q6HR PRN #20 tab 01/18/18 Unknown Rx traMADol [Ultram 50 MG tab] 50 mg PO Q6HR PRN #20 tablet 01/26/18 Unknown Rx Sulfamethoxazole/Trimethoprim 1 each PO BID #14 tablet 01/27/18 Unknown Rx [Bactrim DS TAB] Review of Systems Constitutional: no weight loss, no weight gain, no fever, no chills Ears, nose, mouth and throat: no ear pain, no ear discharge, no tinnitis, no nose pain, no nasal congestion, no nasal discharge Cardiovascular: no chest pain, no orthopnea, no palpitations, no rapid/ irregular heart beat, no edema, no syncope Respiratory: no cough, no cough with sputum, no excessive sputum, no hemoptysis , no shortness of breath, no dyspnea on exertion Gastrointestinal: abdominal pain, no nausea, no vomiting, no diarrhea, no constipation Genitourinary Male: no dysuria, no hematuria, no flank pain, no discharge, no urinary frequency Rectal: no pain, no incontinence, no bleeding Musculoskeletal: no neck stiffness, no neck pain, no shooting arm pain, no arm numbness/tingling, no low back pain, no shooting leg pain Integumentary: no rash, no pruritis, no redness, no sores, no wounds Neurological: no paralysis, no weakness, no parathesias, no numbness, no tingling, no seizures, no syncope Psychiatric: no anxiety, no memory loss, no change in sleep habits, no sleep disturbances, no insomnia, no hypersomnia, no change in appetite Endocrine: no cold intolerance, no heat intolerance, no polyphagia, no excessive thirst, no polydipsia, no polyuria, no nocturia Hematologic/Lymphatic: no easy bruising, no easy bleeding, no lymphadenopathy, no lymphedema Allergic/Immunologic: no urticaria, no allergic rhinitis, no wheezing, no persistent infections, no anaphylaxis, no angioedema Exam - Constitutional Vitals: Temp Pulse Resp BP Pulse Ox 97.9 F 74 16 128/84 99 01/27/18 13:20 01/27/18 13:20 01/27/18 13:20 01/27/18 13:20 01/27/18 13:20 General appearance: Present: no acute distress, well-nourished - EENT Eyes: Present: PERRL ENT: hearing intact, clear oral mucosa - Neck Neck: Present: supple, normal ROM - Respiratory Respiratory effort: normal Respiratory: bilateral: CTA - Cardiovascular Heart Sounds: Present: S1 & S2. Absent: rub, click - Extremities Extremities: pulses symmetrical, No edema Peripheral Pulses: within normal limits - Abdominal General gastrointestinal: Present: soft, non-tender, non-distended, normal bowel sounds Male genitourinary: Present: normal - Integumentary Integumentary: Present: clear, warm, dry - Musculoskeletal Musculoskeletal: gait normal, strength equal bilaterally - Psychiatric Psychiatric: appropriate mood/affect, intact judgment & insight - Neurologic Neurologic: CNII-XII intact, moves all extremities Results - Labs CBC & Chem 7: 01/27/18 07:52 01/27/18 07:52 Labs: Abnormal lab results 01/27/18 01/27/18 01/27/18 Range/Units 07:52 07:52 08:21 Hgb 10.9 L (11.8-15.2) gm/dl Hct 33.7 L (35.5-45.6) % Eos % (Auto) 4.4 H (0.0-4.3) % Baso % (Auto) 2.9 H (0.0-1.8) % Baso # 0.2 H (0.0-0.1) K/mm3 Chloride 113.5 H (98-107) mmol/L Carbon Dioxide 21 L (22-30) mmol/L Glucose 73 L (75-100) mg/dL Lactic Acid 0.60 L (0.7-2.0) mmol/L Calcium 7.7 L (8.4-10.2) mg/dL Total Protein 4.7 L (6.3-8.2) g/dL Albumin 2.2 L (3.9-5) g/dL Lipase 5 L (13-60) units/L Urine WBC (Auto) (0.0-6.0) /HPF 01/27/18 Range/Units 08:45 Hgb (11.8-15.2) gm/dl Hct (35.5-45.6) % Eos % (Auto) (0.0-4.3) % Baso % (Auto) (0.0-1.8) % Baso # (0.0-0.1) K/mm3 Chloride (98-107) mmol/L Carbon Dioxide (22-30) mmol/L Glucose (75-100) mg/dL Lactic Acid (0.7-2.0) mmol/L Calcium (8.4-10.2) mg/dL Total Protein (6.3-8.2) g/dL Albumin (3.9-5) g/dL Lipase (13-60) units/L Urine WBC (Auto) 80.0 H (0.0-6.0) /HPF Assessment and Plan - Patient Problems (1) UTI (urinary tract infection) Status: Acute Plan to address problem: Oral antibiotic therapy, outpatient urology F/U for further care and evaluation of renal stent, and possible cystoscopy.
== END 2018-01-27 13:20 | disposition home or self-care (01) ==
LOC: ED 20:40
DX: N39.0 Urinary tract infection, site not specified (principal); I10 Essential (primary) hypertension; K21.9 Gastro-esophageal reflux disease without esophagitis; M19.90 Unspecified osteoarthritis, unspecified site; F17.200 Nicotine dependence, unspecified, uncomplicated; Z88.6 Allergy status to analgesic agent; Z88.0 Allergy status to penicillin
CPT/HCPCS: 36415; 74176; 80053; 81001; 82140; 83690; 85025; 87086; 96374; 96375; 99284; J1956; J2405; J7030